=== PATIENT | male | born 1995 | race Caucasian/White ===

== ENCOUNTER 2022-11-03 11:06 | Outpatient (OUT) | payer OTHER, SELFPAY ==
[2022-11-03 11:38] LABS: Basophils Absolute Auto 0.1 10^3/uL (0.0-0.1); Basophils Percent Auto 1.3 % (0.2-2.0); Eosinophils Absolute Auto 0.4 10^3/uL (0.0-0.7); Eosinophils Percent Auto 9.3 % (0.9-7.0); Hematocrit 39.2 % (42.0-54.0); Hemoglobin 12.9 g/dL (14.0-18.0); Immature Granulocytes Abs Auto 0.01 10^3/uL (0.00-0.03); Immature Granulocytes Pct Auto 0.3 % (0.0-0.5); Lymphocytes Absolute Auto 1.3 10^3/uL (1.2-3.8); Lymphocytes Percent Auto 31.3 % (20.5-60.0); Mean Corpuscular HGB Conc 32.9 g/dL (29.9-35.2); Mean Corpuscular Hemoglobin 27.3 pg (25.9-34.0); Mean Corpuscular Volume 83.1 fL (80.0-94.0); Mean Platelet Volume 8.7 fL (9.5-13.5); Monocytes Absolute Auto 0.3 10^3/uL (0.3-0.8); Neutrophils Percent Auto 49.8 % (43.0-75.0); Platelet Count 279 10^3/uL (150-450); Red Blood Count 4.72 10^6/uL (4.70-6.10); Red Cell Distribution Width 13.2 % (11.0-15.0)
[2022-11-03 11:42] LABS: Estimated Average Glucose 100 mg/dL; Glycohemoglobin A1C 5.1 % (4.5-6.2)
[2022-11-03 12:08] LABS: Alanine Aminotransferase 25 U/L (16-63); Albumin Globulin Ratio 1.3; Albumin Level 4.3 g/dL (3.4-5.0); Alkaline Phosphatase 95 U/L (46-116); Anion Gap 9.4; Aspartate Amino Transferase 23 U/L (15-37); BUN Creatinine Ratio 16.7; Bilirubin Total 0.2 mg/dL (0.2-1.0); Carbon Dioxide 28.5 mmol/L (21.0-32.0); Chloride 102 mmol/L (98-107); Chol HDL Ratio 3.3; Cholesterol 155 mg/dL (<=200); Estimated GFR (African America >60 (>=60); Estimated GFR (Non-African Ame >60 (>=60); Free T3 3.09 pg/mL (2.18-3.98); Globulin 3.2 g/dL; Glucose 93 mg/dL (74-106); HDL Cholesterol 47 mg/dL (40-60); LDL Cholesterol Calculated 97.8 mg/dL; Potassium 3.9 mmol/L (3.5-5.1); Sodium 136 mmol/L (136-145); Total Protein 7.5 g/dL (6.4-8.2); Triglycerides 51 mg/dL (<=150); VLDL CHOLESTEROL 10.2 mg/dL
== END 2022-11-03 11:07 | disposition home or self-care (01) ==
LOC: LAB 11:09
PROVIDERS: PCP Family Medicine; Visit Provider Family Medicine
DX: Z00.00 Encounter for general adult medical examination without abnormal findings (principal); E78.5 Hyperlipidemia, unspecified
CPT/HCPCS: 36415; 80053; 80061; 83036; 83525; 84436; 84443; 84481; 85025

== ENCOUNTER 2023-01-28 17:21 | Outpatient (REF) | payer OTHER, SELFPAY ==
[2023-01-28 18:41] LABS: SARS-CoV-2 Ag NEGATIVE (NEGATIVE)
[2023-01-28 18:52] LABS: Influenza Virus A Antigen Negative; Influenza Virus B Antigen Negative; Internal Control Within Normal Limits
[2023-01-29 11:23] LABS: SARS-CoV-2 NAA NOT DETECTED (NOT DETECTE)
== END 2023-01-28 17:22 | disposition home or self-care (01) ==
LOC: LAB 17:21
PROVIDERS: PCP Family Medicine; Visit Provider Nurse Practitioner Family
DX: J06.9 Acute upper respiratory infection, unspecified (principal)
CPT/HCPCS: 87635; 87804; 87811

== ENCOUNTER 2023-02-08 10:11 | Outpatient (OUT) | payer OTHER, SELFPAY ==
--- NOTE | 2023-02-08 10:21 | XR_ITS ---
The [place] [id number] Patient Name: WALKER CASTILLO MRN: [id number] date: 1995 Sex: M Assigned Patient Location: [facility] Current Patient Location: Accession/Order Number: [id number] Exam Date: 02/08/2023 11:05 Report Date: 02/09/2023 10:00 At the request of: PAULA SHI Procedure: XR thoracic spine 3V EXAM: XR thoracic spine 3V HISTORY: Lumbago Due To Displacement Of Disc M51.26 COMPARISON: 12/29/2021 TECHNIQUE: Routine views of the XR thoracic spine 3V FINDINGS: Anatomy: 12 rib-bearing thoracic segments. Bones: No acute fracture or dislocation. No suspicious lytic or sclerotic lesion. Mild multilevel thoracic disc and endplate degeneration. Other: Unremarkable. XR/XR thoracic spine 3V IMPRESSION: Mild thoracic spondylosis without acute findings. Electronically authenticated by: ANKITA GUEVARA Date: 02/09/2023 10:00
== END 2023-02-08 10:12 | disposition home or self-care (01) ==
PROVIDERS: PCP Family Medicine; Visit Provider Family Medicine
DX: M51.26 Other intervertebral disc displacement, lumbar region (principal); M47.814 Spondylosis without myelopathy or radiculopathy, thoracic region
CPT/HCPCS: 72072

== ENCOUNTER 2023-02-19 12:28 | Outpatient (OUT) | payer OTHER, SELFPAY ==
--- NOTE | 2023-02-19 12:31 | MR_ITS ---
The [address] [address] Patient Name: WALKER CASTILLO MRN: [facility]:[id number] date: 1995 Sex: M Assigned Patient Location: MRI Current Patient Location: MRI Accession/Order Number: [id number] Exam Date: 02/19/2023 13:00 Report Date: 02/21/2023 12:10 At the request of: PAULA SHI Procedure: MR thoracic spine wo con EXAM: MR thoracic spine wo con HISTORY: Lumbago Due To Displacement Of Disc M51.26. Pain between the shoulder blades radiates distally. No known trauma. COMPARISON: Thoracic spine x-rays 02/08/2023. MRI thoracic spine 12/29/2021. TECHNIQUE: Multiplanar, multisequence MRI of the thoracic spine was performed without contrast. This included sagittal T2, sagittal T1, sagittal STIR with axial T2 and axial T1 imaging. FINDINGS: There are multiple Schmorl's nodes along the thoracic spine with slight anterior wedging deformity at T11, unchanged suggesting Scheuermann's disease. No acute compression fracture is seen. There is minor endplate degenerative edema at T8-9. Axial images are somewhat motion degraded. T8-9: Minimal disc bulge without significant central canal stenosis. Facet disease at T8-9 contributes to mild to moderate bilateral neural foraminal stenosis, unchanged. T9-10: Bilateral facet disease contributes to moderate bilateral neural foraminal stenosis. Study is somewhat motion degraded. As seen, the thoracic spinal cord demonstrates normal size, signal and morphology. No paraspinal mass is seen. MR/MR thoracic spine wo con IMPRESSION: 1. MRI findings suggestive of Scheuermann's disease. No acute osseous variation identified. 2. Mild degenerative disc disease. No significant central canal stenosis. 3. Facet disease along the lower thoracic spine contributes to bilateral neural foraminal stenosis at T8-T9 and T9-10. Electronically authenticated by: GUILLERMO DIALLO Date: 02/21/2023 12:10
--- OUTSIDE RECORDS SUMMARY | 2023-02-19 12:33 | XMS_ITS | CCD ---
Author Name Unknown Address [facility] [address] [place] [id number] Organization [facility] Care Team Providers Care Telephone Technician Name Role Phone MARRERO ., RACHNA Consulting Unavailable HOY ., DR MITCHELL Primary Care Unavailable SAL ., DR DAIN Chavira Attending Unavailable SAL ., DR DAIN Chavira Admitting Unavailable MARRERO ., RACHNA Consulting Unavailable HOY ., DR MITCHELL Primary Care Unavailable SAL ., DR DAIN Chavira Attending Unavailable SAL ., DR DAIN Chavira Admitting Unavailable SAL ., DR DAIN Chavira Consulting Unavailable HOY ., DR MITCHELL Primary Care Unavailable SAL ., DR DAIN Chavira Attending Unavailable SLA ., DR DAIN Chavira Admitting Unavailable MIKAEL CUI Consulting Unavailable TARUN YEBOAH Consulting Unavailable SAL ., DR DAIN Chavira Consulting Unavailable HOY ., DR MITCHELL Primary Care Unavailable SAL ., DR DAIN Chavira Attending Unavailable SAL ., DR DAIN Chavira Admitting Unavailable SAL ., DR DAIN Chavira Consulting Unavailable HOY ., DR MITCHELL Primary Care Unavailable SAL ., DR DAIN Chavira Attending Unavailable SAL ., DR DAIN Chavira Admitting Unavailable MARRERO ., RACHNA Consulting Unavailable HOY ., DR MITCHELL Primary Care Unavailable SAL ., DR DAIN Chavira Attending Unavailable SAL ., DR DAIN Chavira Admitting Unavailable SAL ., DR DAIN Chavira Consulting Unavailable HOY ., DR MITCHELL Primary Care Unavailable SAL ., DR DAIN Chavira Attending Unavailable SAL ., DR DAIN Chavira Admitting Unavailable SAL ., DR DAIN Chavira Consulting Unavailable HOY ., DR MITCHELL Primary Care Unavailable SAL ., DR DAIN Chavira Attending Unavailable SAL ., DR DAIN Chavira Admitting Unavailable GUILLE CARRILLO Consulting Unavailable HOY ., DR MITCHELL Primary Care Unavailable HOY ., DR MITCHELL Attending Unavailable HOY ., DR MITCHELL Admitting Unavailable HOY ., DR MITCHELL Consulting Unavailable HOY ., DR MITCHELL Primary Care Unavailable HOY ., DR MITCHELL Attending Unavailable HOY ., DR MITCHELL Admitting Unavailable [place], DR SULEMA Yip Consulting Unavailable ROHIT, DR TARUN Atkins Consulting Unavailable HOY ., DR MITCHELL Primary Care Unavailable MARRERO ., RACHNA Attending Unavailable MARRERO ., RACHNA Admitting Unavailable MARRERO ., RACHNA Consulting Unavailable HOY ., DR MITCHELL Primary Care Unavailable HOY ., DR MITCHELL Attending Unavailable HOY ., DR MITCHELL Admitting Unavailable HOY ., DR MITCHELL Primary Care Unavailable HOY ., DR MITCHELL Attending Unavailable HOY ., DR MITCHELL Admitting Unavailable HOY ., DR MITCHELL Consulting Unavailable HOY ., DR MITCHELL Primary Care Unavailable HOY ., DR MITCHELL Attending Unavailable HOY ., DR MITCHELL Admitting Unavailable Problems Active Problems Problem Classification Problem Date Documented Date Episodic/Chronic Other nervous system disorders (1 source) Other specified mononeuropathies; Translations: [OTHER SPECIFIED MONONEUROPATHIES] Onset: 09-24-2021 Chronic Other nervous system disorders (1 source) Other chronic pain; Translations: [OTHER CHRONIC PAIN] Onset: 06-26-2021 Chronic Residual codes; unclassified (4 sources) Obstructive sleep apnea (adult) (pediatric); Translations: [OBSTRUCTIVE SLEEP APNEA] Onset: 04-27-2022 Chronic Spondylosis; intervertebral disc disorders; other back problems (5 sources) Spondylosis without myelopathy or radiculopathy, thoracic region; Translations: [Other intervertebral disc degeneration, thoracic region] Onset: 09-18-2021 Chronic Past or Other Problems Problem Classification Problem Date Documented Da te Episodic/Chronic Spondylosis; intervertebral disc disorders; other back problems (10 sources) Pain in thoracic spine; Translations: [Cervicalgia] Onset: 05-21-2021 Episodic Results Test Name Value Interpretation Reference Range Facil ity MRI TSPINE WO CONon 12-30-19 MRI TSPINE WO CON EXAMINATION: MRI TSPINE WO CON HISTORY: Pain in thoracic spine COMPARISON: 03/10/2021 TECHNIQUE: A variety of imaging planes and parameters were utilized for visualization of suspected pathology. FINDINGS: CRANIOCERVICAL AREA: Normal foramen magnum with no Chiari malformation. PARASPINAL AREA: Normal with no visible mass. BONES: Normal alignment with no acute fracture or spondylolisthesis. Mild stable anterior wedging of the T8 T9 T10 and T11 vertebral bodies with no bone edema to suggest an acute fracture. CORD: Normal caliber, contour, and signal intensity. DISC LEVELS: Disc desiccation T6-T7. No disc bulge or herniation. No central or foraminal stenosis IMPRESSION: No acute abnormality Electronically authenticated by: SULEMA REYEZ Date: 2021-12-29 17:48 Normal [facility] XR CSPINE OBL FLEX_EXTon XR CSPINE OBL FLEX_EXT EXAMINATION: XR CSPINE OBL FLEX_EXT HISTORY: Neck pain ; chronic cervical pain COMPARISON: XR cervical spine 03/04/2021 FINDINGS: BONES: Straightening of the normal lordotic curvature. No fracture, spondylolisthesis, or appreciable change in alignment during flexion and extension. No significant degenerative facet arthropathy. DISC SPACES: Mild narrowing C2-3. Small-moderate posterior disc-osteophyte complex at C5-6. PARASPINOUS: Negative. No paraspinous abnormality is seen. OTHER: Negative. IMPRESSION: 1. Straightening of the cervical spine; positioning versus muscle spasm. 2. Mild degenerative disc disease C2-3, C5-6; not significantly changed. Consider MRI if symptoms persist. Electronically authenticated by: TARUN BEE Date: 2021-07-08 08:58 Normal [facility] Encounters Encounter Date Encounter Type Care Provider Facility Start: 04-27-2022 End: 04-28-[address] PAULA BARAHONA . Facility:[facility] Start: 02-26-[address] PAULA BARAHONA . Facili ty:[facility] Start: 01-07-[address] PAULA BARAHONA . Facili ty:[facility] Start: 12-29-2021 End: 12-30-[address] PAULA BARAHONA . Facility:[facility] Start: 12-22-[address] PAULA BARAHONA . Facili ty:[facility] Start: 09-18-2021 End: 09-19-2021 ambulatory RACHNA MARRERO . Facility:[facility] Start: 08-19-2021 End: 08-19-[address] DAIN SAL . Facility:[facility] Start: 08-05-2021 End: 08-05-[address] DAIN SAL . Facility:[facility] Start: 07-08-2021 End: 07-09-[address] TARUN R ZIEBER Facility:[facility] Start: 07-03-2021 End: 07-04-2021 ambulatory RACHNA MARRERO . Facility:[facility] Start: 06-24-2021 End: 06-24-[address] DAIN SAL . Facility:[facility] Start: 06-10-[address] DAIN SAL . Faci lity:[facility] Start: 05-15-2021 End: 05-16-2021 ambulatory RACHNA MARRERO . Facility:[facility] Start: 05-06-2021 End: 05-06-[address] DAIN SAL . Facility:[facility] Payers Date Payer Category Payer Unknown [id number] 2.16.84 [id number] 1995 Unknown [id number] 2.16.84 [id number] 1994 Unknown [id number] 2.16.84 0.1.716160.3.579.2.593 1994 Unknown [id number] 2.16.84 0.1.558850.3.579.2.593 1994 Unknown [id number] 2.16.84 0.1.073291.3.579.2.593 1994 Unknown [id number] 2.16.84 0.1.652414.3.579.2.593 1994 Unknown [id number] 2.16.84 0.1.497573.3.579.2.593 1994 Unknown [id number] 2.16.84 0.1.608626.3.579.2.593 1994 Unknown [id number] 2.16.84 0.1.424936.3.579.2.593 1994 Unknown [id number] 2.16.84 0.1.473130.3.579.2.593 1994 Unknown [id number] 2.16.84 0.1.973859.3.579.2.593 1994 Unknown [id number] 2.16.84 0.1.207301.3.579.2.593 1994 Unknown [id number] 2.16.84 0.1.301730.3.579.2.593 1994 Unknown [id number] 2.16.84 0.1.715180.3.579.2.593 1959 Private Health Insurance [id number] 1959 Self-pay Consultation note 09-18-2021 Note Date & Type Note Facility 09-18-2021 Note CONSULTATION CONSULTATION DATE: 09/18/2021 HISTORY OF PRESENT ILLNESS: This is a 26-year-old male returning to the clinic status post bilateral RFAs of T8, T9 and T10, T11, which was completed on 08/19/2021 and afforded him 75% relief. Patient still complains of slight dull achiness that is mostly in the forward flexion position or when holding his young child. Overall, he is very pleased with the outcome and is participating in stretching, heat rubs and moist heat. He feels a slight achiness just to the level above the RFA, but has been using self massage and Icy Hot on top of that, which has been beneficial. Activities such as pushing, pulling, sitting, standing, walking and bending aggravate his pain. Stretching and the use of heat and ice relieve his pain. Patient does have a history of seizures and he is on Lamictal. Other medications include Xarelto, tramadol 50 mg per his PCP, baclofen and Paxil. Patient's REVIEW OF SYSTEMS / PAST MEDICAL HISTORY / ALLERGIES and IMAGES have been reviewed and they are noted on the chart. PHYSICAL EXAM: VITAL SIGNS: Blood pressure is 136/80. Heart rate is 72. Temperature is 98.2. He is 6'4 and weighs 245 pounds. GENERAL APPEARANCE: Pleasant, appropriate, no acute distress. FOCUSED EXAM - BACK: Paravertebral muscles are supple and non-spasmodic. Range of motion is functional in lateral rotation and flexion/extension. Upon compression of the posterior elements of the thoracic facets of T8, T9 and T11, T10, no spinal axial pain was reproduced, indicative of successful RFA. Slight tenderness to T1, T2 and T3 on the left, upon compression. MUSCULOSKELETAL: Motor is intact to upper and lower extremities. Motor is 5/5. NEUROLOGICAL: Patchy hypoesthesia noted to right sided C8 dermatome, just below the elbow. +1 bilateral brachioradialis reflex. IMPRESSION: Thoracic spondylosis, thoracic degenerative disc and cervical neuritis. PLAN: Overall, the patient is doing quite well. He was encouraged to continue doing his extension exercises and taking his baclofen, as well as continuing his heat rub and vitamins. At this point, the patient will call us for any needed appointment at this time. Patient agrees with the plan of care. [facility] Consultation note 07-03-2021 Note Date & Type Note Facility 07-03-2021 Note CONSULTATION CONSULTATION DATE: 07/03/2021 This is a pleasant 26-year-old male who returns to the clinic status post #2 bilateral MBB to T8, T9 and T10, T11 which was completed on that afforded him 98% relief for approximately one week. The pain is beginning to return but the patient reports it is not as bad as pre-procedure. He rates his pain 5 out of 10 today and describes it as achy and stressed. The patient is able to be very mobile and complete ADLs at home. Activities such as twisting, turning, pushing, pulling, standing, walking, lifting and bending aggravate his pain. He will alternate heat and ice on his back which does give him relief. His PCP Dr. Barahona, has recently given him a short-term dose of Tramadol to help with the pain during his active daytime hours. Other medications include Paxil, Xarelto and Baclofen. The patient is complaining today of lower neck pain that is aggravated by rotational movements. He states he occasionally feels a pop and is acquiring about possible treatment. REVIEW OF SYSTEMS, PAST MEDICAL HISTORY, ALLERGIES AND IMAGES: Have been reviewed and noted in the chart. PHYSICAL EXAM: VITAL SIGNS: Blood pressure 145/90, heart rate is 74, temperature is 97.6. Height is 6'4 , weighs 121.3 mg. GENERAL APPEARANCE: Pleasant, appropriate, in no acute distress, sitting in a chair. FOCUSED EXAM: Reproduction of the patient's pain symptomatology to direct compression along the posterior elements of the thoracic of T8, T9 and T10, T11. Fullness is palpated that radiates laterally which is concordant with ill facet arthropathy, thoracic spondylosis. Paravertebral muscles are non-spasmodic. Range of motion is guarded in lateral rotation and flexion/extension. MUSCULOSKELETAL: Motor is intact, 4 out of 5 bilaterally. The patient has good muscle tone. Stable gait. NEUROLOGICAL: Radicular sensory is intact. Negative polyneuropathy. DIAGNOSIS: Thoracic spondylosis, thoracic degenerative disk and cervicalgia. PLAN: We will gain authorization for radiofrequency ablation starting with the right side of T, 9 and T10, T11 and subsequently moved to the left. We will get authorization to hold his Xarelto pre-procedure. We will obtain an x-ray for cervical flexion and extension views to review pathology and anatomy. The x-ray will be reviewed at his post-op appointment following his procedures. The patient agrees with the plan of care and would like to proceed. [facility] Signed and Approved by: RACHNA MARRERO . 07/10/2021 17:08:00 [facility] Consultation note 05-15-2021 Note Date & Type Note Facility 05-15-2021 Note The [place], [place] NAME: WALKER CASTILLO DATE OF : MEDICAL REC#: [id number] BUGGY OPERATOR: [address] [facility], TRANSADMIT DATE: 05/15/2021 14:42:00 MANAGER CONCRETE DATE: 05/16/2021 22:00 DICTATING PHYSICIAN: RACHNA MARRERO DICTATION DATE: 05/15/2021 15:00 CONSULTATION PAIN MANAGEMENT CONSULTATION HISTORY OF PRESENT ILLNESS: This is a pleasant and active, 26-year-old male, who returns to the clinic status post #1 bilateral MBB of T8, T9 and T10, T11 completed on 04/30/2021 that afforded him 85% relief for one day. Today, he is still reporting 60-65% relief, but is slowly decreasing. His pain today is 6/10, described as achy with an occasional sharp pain. He does feel stiff during the end of the day. While he was feeling his best post procedure, he felt his posture was straighter and he felt taller as he was able to move around with less pain. He felt he did not have the need to sit down as frequently while he was feeling better. Activities that aggravate his pain are prolonged standing, walking, twisting, turning, pushing, pulling, lifting and ADLs. The use of alternating heat and ice along with sleep decrease his pain. Medications include Paxil, tizanidine 8 mg q.h.s. and he uses Icy Hot on his back. He is on Xarelto for a history of left upper arm blood clots. Patient's REVIEW OF SYSTEMS / PAST MEDICAL HISTORY / ALLERGIES and IMAGES have been reviewed and they are noted in the chart. PHYSICAL EXAM: VITALS SIGNS: Blood pressure 152/80, heart rate is 81. Temperature is 98. He is 6'4 and weighs 122 kg. FOCUSED EXAM - THORACIC BACK: Trapezius muscles tense but not spasmodic. Reproduction of patient's pain spinal axial pain noted to posterior elements of the thoracic facets upon compression that is non-radiating. This is concordant with ill facet arthropathy, thoracic spondylosis of T8, T9 and T10, T11. Range of motion is within normal limits for lateral rotation and flexion/extension. MUSCULOSKELETAL: Motor is intact upper and lower extremities 4/5 bilaterally. NEUROLOGICAL: Radicular sensory is intact. Negative polyneuropathy. IMPRESSION: Thoracic spondylosis, thoracic degenerative disc and thoracic pain. PLAN: Patient agrees and would like to move forward with a #2 bilateral MBB to T8, T9 and T10, T11. In the meantime, patient was encouraged to continue using a heat rub as well as perform extension exercises which were demonstrated for him. I encouraged him to start magnesium glycinate 400 mg q.h.s. in addition to his multivitamin. We will gain permission to hold his Xarelto prior to the procedure. Patient agrees with plan of care and would like to proceed. Electronically Authenticated and Edited by: Rachna Marrero CNP on 05/22/2021 10:05 AM EDT [facility] Signed and Approved by: RACHNA MARRERO . 05/22/2021 10:05:00 [facility] Summary Purpose Family History No Family History Records Found Advance Directives No Advanced Directives Records Found Additional Source Comments (unrecognized sect ion and content) No Status Records Found INFORMATION SOURCE (unrecogn ized section and content) DATE CREATED AUTHOR 05/02/2022 The [facility] FOR RECORDS PERTAINING TO PATIENTS WHO ARE OR HAVE BEEN ENROLLED IN A CHEMICAL DEPENDENCY/SUBSTANCEABUSE PROGRAM, SOME INFORMATION MAY BE OMITTED. This clinical summary was aggregated from multiple sources. Caution should be exercised in using it in the provision of clinical care. This summary normalizes information from multiple sources, and as a consequence, information in this document may materially change the coding, format and clinical context of patient data. In addition, data may be omitted in some cases. CLINICAL DECISIONS SHOULD BE BASED ON THE PRIMARY CLINICAL RECORDS. [facility]. provides no warranty or guarantee of the accuracy or completeness of information in this document.
== END 2023-02-19 12:29 | disposition home or self-care (01) ==
LOC: MRI 12:28
PROVIDERS: PCP Family Medicine; Visit Provider Family Medicine
DX: M51.26 Other intervertebral disc displacement, lumbar region (principal); M51.34 Other intervertebral disc degeneration, thoracic region
CPT/HCPCS: 72146

== ENCOUNTER 2023-03-23 16:37 | Outpatient (RCR) | payer OTHER, SELFPAY | END 2023-04-02 10:20 | disposition home or self-care (01) | LOC: PT 16:37 | PROVIDERS: PCP Family Medicine; Visit Provider Family Medicine | DX: M42.00 Juvenile osteochondrosis of spine, site unspecified (principal) | CPT/HCPCS: 97014; 97110; 97161 ==

== ENCOUNTER 2023-10-13 06:51 | Outpatient (OUT) | payer OTHER, SELFPAY ==
--- OUTSIDE RECORDS SUMMARY | 2023-10-13 06:55 | XMS_ITS | CCD ---
Author Organization [facility] Care Team Providers Care Security And Compliance Analyst Name Role Phone MARRERO ., RACHNA Consulting [...] SAL ., DR DAIN Chavira Admitting Unavailable MIKAEL [...] DR MITCHELL Attending Unavailable HOY ., DR PAULA Vivaritting Unavailable HOY ., DR MITCHELL Consulting Unavailable HOY ., DR MITCHELL Primary Care Unavailable HOY ., DR MITCHELL Attending Unavailable HOY ., DR MITCHELL Admitting Unavailable [place], DR SULEMA Yip Consulting Unavailable ROHIT, DR [...] by: SULEMA REYEZ Date: 2021-12-29 17:48 Normal [facility] XR CSPINE OBL FLEX_EXTon XR [...] Date: 2021-07-08 08:58 Normal [facility] Encounters Encounter Date Encounter Type [...] Start: 07-08-2021 End: 07-09-[address] TARUN BEE Facility:[facility] Start: 07-03-2021 End: 07-04-2021 ambulatory RACHNA MARRERO . Facility:[facility] Start: 06-24-2021 End: 06-24-[address] DAIN SAL . Facility:[facility] Start: 06-10-[address] DAIN SAL . Faci lity:[facility]1 Start: 05-15-2021 End: 05-16-2021 ambulatory RACHNA MARRERO . Facility:[facility] Start: 05-06-2021 End: 05-06-[address] DAIN SAL . Facility:[facility]1 Payers Date Payer Category Payer Unknown [id number] 2.16.84 [id number] 1995 Unknown [id number] 2.16.84 0.1.955514.3.579.2.593 1994 Unknown [id number] 2.16.84 0.1.216949.3.579.2.593 1994 Unknown [id number] 2.16.84 0.1.274774.3.579.2.593 1994 Unknown [id number] 2.16.84 0.1.386294.3.579.2.593 1994 Unknown [id number] 2.16.84 0.1.405507.3.579.2.593 1994 Unknown [id number] 2.16.84 0.1.980762.3.579.2.593 1994 Unknown [id number] 2.16.84 0.1.336981.3.579.2.593 1994 Unknown [id number] 2.16.84 0.1.085707.3.579.2.593 1994 Unknown [id number] 2.16.84 0.1.959359.3.579.2.593 1994 Unknown [id number] 2.16.84 0.1.391623.3.579.2.593 1994 Unknown [id number] 2.16.84 0.1.517014.3.579.2.593 1994 Unknown [id number] 2.16.84 0.1.764011.3.579.2.593 1994 Unknown [id number] 2.16.84 0.1.606403.3.579.2.593 1959 Private Health Insurance [id number] Self-pay Consultation note 09-18-2021 Note Date [...] the plan of care. [facility] Consultation note 07-03-2021 Note Date [...] of care and would like to proceed. [facility] Signed and Approved by: RACHNA MARRERO . 07/10/2021 17:08:00 [facility] Consultation note 05-15-2021 Note Date & Type Note Facility 05-15-2021 Note The [place], [place] NAME: WALKER CASTILLO DATE OF : MEDICAL REC#: [id number] COMMUNICATION TECHNICIAN: [address], TRANSADMIT DATE: 05/15/2021 14:42:00 [employer] OPERATOR DATE: 05/16/2021 22:00 DICTATING PHYSICIAN: RACHNA MARRERO [...] Marrero CNP on 05/22/2021 10:05 AM EDT [facility] Signed and Approved by: RACHNA MARRERO . 05/22/2021 10:05:00 [facility] Summary Purpose Family History No Family History Records Found Advance Directives No Advanced Directives Records Found Additional Source Comments (unrecognized sect ion and content) No Status Records Found INFORMATION SOURCE (unrecogn ized section and content) DATE CREATED AUTHOR 05/02/2022 The [facility] FOR RECORDS PERTAINING TO PATIENTS [...] BE BASED ON THE PRIMARY CLINICAL RECORDS. [employer] [facility]. provides no warranty or guarantee of the accuracy or completeness of information in this document.
--- NOTE | 2023-10-13 06:56 | XR_ITS ---
The [address] [address] Patient Name: WALKER CASTILLO MRN: [id number] date: 1995 Sex: M Assigned Patient Location: [facility] Current Patient Location: [facility] Accession/Order Number: [id number] Exam Date: 10/13/2023 07:05 Report Date: 10/13/2023 12:00 At the request of: PAULA SHI Procedure: XR cervical spine 2-3V EXAMINATION: XR cervical spine 2-3V HISTORY: cervical radiculopathy COMPARISON: XR C-spine 07/08/2021 FINDINGS: BONES: Straightening of normal lordotic curvature. No fracture, spondylolisthesis, or bone lesion. DISC SPACES: Minimal narrowing C2-3, C4-5. Small posterior endplate osteophyte at C5 suggesting posterior disc bulging. PARASPINOUS: Negative. No paraspinous abnormality is seen. OTHER: Negative. XR/XR cervical spine 2-3V IMPRESSION: 1. Suspect multilevel mild degenerative disc disease. 2. Straightening of normal lordotic curvature; positioning versus muscle spasm. Electronically authenticated by: TARUN BEE Date: 10/13/2023 12:00
== END 2023-10-13 06:52 | disposition home or self-care (01) ==
LOC: RAD 06:53
PROVIDERS: PCP Family Medicine; Visit Provider Family Medicine
DX: M54.12 Radiculopathy, cervical region (principal); M50.30 Other cervical disc degeneration, unspecified cervical region
CPT/HCPCS: 72040

== ENCOUNTER 2023-11-04 10:50 | Outpatient (OUT) | payer OTHER, SELFPAY ==
--- NOTE | 2023-11-04 10:56 | XR_ITS ---
The [address] [address] Patient Name: WALKER CASTILLO MRN: [id number] date: 1995 Sex: M Assigned Patient Location: [facility] Current Patient Location: Accession/Order Number: [id number] Exam Date: 11/04/2023 11:00 Report Date: 11/05/2023 13:15 At the request of: MARK JARVIS Procedure: XR cervical spine 2-3V EXAMINATION: XR cervical spine 2-3V HISTORY: Neck Pain M54.2 COMPARISON: 10/13/2023 FINDINGS: BONES: Neutral projection demonstrates reversal of normal cervical lordosis. No acute fracture or spondylolisthesis. Mild spondylosis and facet osteoarthropathy DISC SPACES: Normal. No significant disc height narrowing, subluxation, or endplate abnormality. PARASPINOUS: Negative. No paraspinous abnormality is seen. OTHER: No transient spondylolisthesis with flexion or extension XR/XR cervical spine 2-3V IMPRESSION: Reversal of cervical lordosis in neutral projection with no dynamic instability Electronically authenticated by: SULEMA REYEZ Date: 11/05/2023 13:15
--- OUTSIDE RECORDS SUMMARY | 2023-11-04 11:07 | XMS_ITS | CCD ---
Author Organization [facility] CliniSymn Care Team Providers Care Records Management Analyst Name Role Phone MARRERO ., RACHNA [...] Unavailable HOY ., DR MITCHELL Admitting Unavailable SPENCER, DR SULEMA Yip Consulting Unavailable ROHIT, DR [...] by: SULEMA REYEZ Date: 2021-12-29 17:48 Normal [facility] XR CSPINE OBL FLEX_EXTon XR CSPINE OBL [...] TARUN BEE Date: 2021-07-08 08:58 Normal [facility] Encounters Encounter Date Encounter Type Care Provider [...] Facility:H1 Payers Date Payer Category Payer Unknown [id number] 2.16.84 0.1.339860.3.579.2.593 1995 Unknown [id number] 2.16.84 0.1.298113.3.579.2.593 1994 Unknown [id number] 2.16.84 0.1.688351.3.579.2.593 1994 Unknown [id number] 2.16.84 0.1.884004.3.579.2.593 1994 Unknown [id number] 2.16.84 0.1.893859.3.579.2.593 1994 Unknown [id number] 2.16.84 0.1.492395.3.579.2.593 1994 Unknown [id number] 2.16.84 0.1.709927.3.579.2.593 1994 Unknown [id number] 2.16.84 0.1.020288.3.579.2.593 1994 Unknown [id number] 2.16.84 0.1.542386.3.579.2.593 1994 Unknown [id number] 2.16.84 0.1.685757.3.579.2.593 1994 Unknown [id number] 2.16.84 0.1.393720.3.579.2.593 1994 Unknown [id number] 2.16.84 0.1.939162.3.579.2.593 1994 Unknown [id number] 2.16.84 0.1.611260.3.579.2.593 1994 Unknown [id number] 2.16.84 0.1.044180.3.579.2.593 1959 Private Health Insurance [id number] Self-pay Consultation note 09-18-2021 Note Date [...] agrees with the plan of care. [facility] Consultation note 07-03-2021 Note Date & Type [...] of care and would like to proceed. [facility] Signed and Approved by: RACHNA MARRERO . 07/10/2021 17:08:00 [facility] Consultation note 05-15-2021 Note Date & Type Note Facility 05-15-2021 Note The [place], [place] NAME: WALKER CASTILLO DATE OF : MEDICAL REC#: [id number] ENGINE BUILDUP MECHANIC: [address], TRANSADMIT DATE: 05/15/2021 14:42:00 DIGITAL RETOUCHER DATE: 05/16/2021 22:00 DICTATING PHYSICIAN: RACHNA MARRERO [...] Marrero CNP on 05/22/2021 10:05 AM EDT [facility] Signed and Approved by: RACHNA MARRERO . 05/22/2021 10:05:00 [facility] Summary Purpose Family History No Family History Records Found Advance Directives No Advanced Directives Records Found Additional Source Comments (unrecognized sect ion and content) No Status Records Found INFORMATION SOURCE (unrecogn ized section and content) DATE CREATED AUTHOR 05/02/2022 The [facility] FOR RECORDS PERTAINING TO PATIENTS WHO [...] BE BASED ON THE PRIMARY CLINICAL RECORDS. [employer] [facility]. provides no warranty or guarantee of the accuracy or completeness of information in this document.
== END 2023-11-04 10:51 | disposition home or self-care (01) ==
LOC: RAD 10:51
PROVIDERS: PCP Family Medicine; Visit Provider Orthopaedic Surgery Orthopaedic Surgery of the Spine
DX: M54.2 Cervicalgia (principal)
CPT/HCPCS: 72040

== ENCOUNTER 2023-11-25 15:25 | Outpatient (OUT) | payer OTHER, SELFPAY ==
--- NOTE | 2023-11-25 15:28 | MR_ITS ---
The [place] [id number] Patient Name: WALKER CASTILLO MRN: [facility]:[id number] date: 1995 Sex: M Assigned Patient Location: MRI Current Patient Location: MRI Accession/Order Number: [id number] Exam Date: 11/25/2023 15:45 Report Date: 11/25/2023 18:24 At the request of: MARK JARVIS Procedure: MR cervical spine wo con MR cervical spine wo con, 11/25/2023 3:45 PM EDT INDICATION: Cervical Radiculopathy, Degenerative Disc Disease COMPARISON: Prior x-ray of cervical spine dated 11/04/2023 and 07/08/2021 TECHNIQUE: Multiplanar, multisequential MRI images of cervical spine were obtained without contrast. FINDINGS: The sensitivity of the study has been decreased due to motion artifact. There is normal physiologic cervical lordosis. The vertebral heights are relatively preserved. The cervicomedullary junction is unremarkable. No definite signal abnormality within the spinal cord is noted. There are mild disc osteophyte complex associated with uncovertebral joint arthrosis from C3 to T1 contributing to neuroforaminal and canal stenosis. At the level of C2-C3, there is no neuroforaminal narrowing or canal stenosis. At the level of C3-C4, there is moderate bilateral neuroforaminal narrowing and no canal stenosis. At the level of C4-C5, there is mild bilateral neuroforaminal narrowing and mild canal stenosis. At the level of C5-C6, there is no neuroforaminal narrowing and no canal stenosis. At the level of C6-C7, there is mild right neuroforaminal narrowing and no canal stenosis. Level of C7-T1 is unremarkable. No definite muscular or ligamentous injury is noted. MR/MR cervical spine wo con IMPRESSION: Limited study due to significant motion artifact. Within this confinement, moderate degenerative changes of the cervical spine in particular at C3-C4 and C4-C5. Electronically authenticated by: SOPHIA VERDUZCO Date: 11/25/2023 18:24
--- OUTSIDE RECORDS SUMMARY | 2023-11-25 15:28 | XMS_ITS | CCD ---
Author Organization [facility] CliniSypr Care Team Providers Care Tank Builder Name Role Phone MARRERO ., RACHNA Consulting [...] Unavailable HOY ., DR MITCHELL Admitting Unavailable [place]ES[place], DR SULEMA Yip Consulting Unavailable ROHIT, DR [...] by: SULEMA REYEZ Date: 2021-12-29 17:48 Normal [facility] XR CSPINE OBL FLEX_EXTon XR CSPINE [...] TARUN BEE Date: 2021-07-08 08:58 Normal [facility] Encounters Encounter Date Encounter Type Care [...] Facility:H1 Payers Date Payer Category Payer Unknown [id number] 2.16.84 0.1.481160.3.579.2.593 1995 Unknown [id number] 2.16.84 0.1.013076.3.579.2.593 1994 Unknown [id number] 2.16.84 0.1.336438.3.579.2.593 1994 Unknown [id number] 2.16.84 0.1.392864.3.579.2.593 1994 Unknown [id number] 2.16.84 0.1.090496.3.579.2.593 1994 Unknown [id number] 2.16.84 0.1.556164.3.579.2.593 1994 Unknown [id number] 2.16.84 0.1.479615.3.579.2.593 1994 Unknown [id number] 2.16.84 0.1.876838.3.579.2.593 1994 Unknown [id number] 2.16.84 0.1.173017.3.579.2.593 1994 Unknown [id number] 2.16.84 0.1.444960.3.579.2.593 1994 Unknown [id number] 2.16.84 0.1.250667.3.579.2.593 1994 Unknown [id number] 2.16.84 0.1.858180.3.579.2.593 1994 Unknown [id number] 2.16.84 0.1.571669.3.579.2.593 1994 Unknown [id number] 2.16.84 0.1.391915.3.579.2.593 1959 Private Health Insurance [id number] Self-pay Consultation note 09-18-2021 Note Date [...] agrees with the plan of care. [facility] Consultation note 07-03-2021 Note Date & [...] of care and would like to proceed. [facility] Signed and Approved by: RACHNA MARRERO . 07/10/2021 17:08:00 [facility] Consultation note 05-15-2021 Note Date & Type Note Facility 05-15-2021 Note The [place], [place] NAME: WALKER CASTILLO DATE OF : MEDICAL REC#: [id number] SIDE PANEL PADDER: [address], TRANSADMIT DATE: 05/15/2021 14:42:00 AIR TECHNICIAN DATE: 05/16/2021 22:00 DICTATING PHYSICIAN: RACHNA MARRERO [...] Marrero CNP on 05/22/2021 10:05 AM EDT [facility] Signed and Approved by: RACHNA MARRERO . 05/22/2021 10:05:00 [facility] Summary Purpose Family History No Family History Records Found Advance Directives No Advanced Directives Records Found Additional Source Comments (unrecognized sect ion and content) No Status Records Found INFORMATION SOURCE (unrecogn ized section and content) DATE CREATED AUTHOR 05/02/2022 The [facility] FOR RECORDS PERTAINING TO PATIENTS WHO [...] BE BASED ON THE PRIMARY CLINICAL RECORDS. [facility]. provides no warranty or guarantee of the accuracy or completeness of information in this document.
== END 2023-11-25 15:26 | disposition home or self-care (01) ==
LOC: MRI 15:25
PROVIDERS: PCP Family Medicine; Visit Provider Orthopaedic Surgery Orthopaedic Surgery of the Spine
DX: M50.30 Other cervical disc degeneration, unspecified cervical region (principal); M54.12 Radiculopathy, cervical region
CPT/HCPCS: 72141

== ENCOUNTER 2024-09-18 15:16 | Outpatient (OUT) | payer OTHER, SELFPAY ==
--- OUTSIDE RECORDS SUMMARY | 2023-12-24 07:30 | XMS_ITS ---
Author Organization [facility] Address [address] [place] [address] Care Team Providers Care Magazine Journalist Name Role Phone Arden Barahona Primary Care Provider Rupali Wang [phone] REASON FOR VISIT cervical mri review Medications Medication SIG (Take, Route, Frequency, Duration) Notes Start Date End Date Status Xarelto Active methocarbamol Active LaMICtal Active Encounters Encounter Location Date Provider Diagnosis [facility] Office [address] [place] [address] [place] [address] 12/24/2023 Rupali Romero Plan Of Treatment No Information Progress Notes * RHINA CASTILLOIN JazielDOB: 5 (29 yo M)Acc No.[id number]:12/24/2023 Patient: WALKER VELOZ Provider: Fan Bella MD, PhD :1995 A ge:28 Y S ex:Male Date:12/24/2023 Address:[address] [place], [place] [address] Pcp:Arden Barahona Subjective: * Chief Complaints: * 1 . Cervical mri review. * Medical History: * Medications: T aking methocarbamol , Taking LaMICtal , Taking Xarelto Objective: * Vitals: Assessment: Plan: * Treatment: Forms: * Images: * Electronic signature of Grayson Romero MD, PHD on 09/18/2024 at 03:20 PM EDT Sign off status: Pending * Provider: Fan Bella MD, PhD Date: 02/22/2023 Generated for Costa morrow/Domonique/Rogers on: 0 09/18/2024 03:20 PM EDT
--- OUTSIDE RECORDS SUMMARY | 2024-01-07 07:30 | XMS_ITS ---
Author Organization [facility] Address [address] [place] [address] Care Team Providers Care Sailboat Captain Name Role Phone Arden Barahona Primary Care Provider Rupali Wang [phone] REASON FOR VISIT cervical mri review Medications Medication SIG (Take, Route, Frequency, Duration) Notes Start Date End Date Status methocarbamol Active LaMICtal Active Xarelto Active Encounters Encounter Location Date Provider Diagnosis [facility] Office [address] [place] [address] [place] [address] 01/07/2024 Rupali Romero Plan Of Treatment No Information Progress Notes * RHINA CASTILLOIN JazielDOB: 5 (29 yo M)Acc No.[id number]:01/07/2024 Patient: WALKER VELOZ Provider: Fan Bella MD, PhD :1995 A ge:28 Y S ex:Male Date:01/07/2024 Address:[address] [place], [place] [address] Pcp:Arden Barahona Subjective: * Chief Complaints: * 1 . Cervical mri review. * Medical History: * Medications: T aking methocarbamol , Taking LaMICtal , Taking Xarelto Objective: * Vitals: Assessment: Plan: * Treatment: Forms: * Images: * Electronic signature of Grayson Romero MD, PHD on 09/18/2024 at 03:20 PM EDT Sign off status: Pending * Provider: Fan Bella MD, PhD Date: 1 03/08/2023 Generated for Costa morrow/Domonique/Rogers on: 0 09/18/2024 03:20 PM EDT
--- OUTSIDE RECORDS SUMMARY | 2024-06-07 10:43 | XMS_ITS ---
Author Organization [facility] [place] Address [address] [place] [address] Care Team Providers Care Laborer Dairy Farm Name Role Phone Kp Barahona Primary Care Provider REASON FOR VISIT refill Medications Medication SIG (Take, Route, Fr equency, Duration) Notes Start Date End Date Status ARIPiprazole 2 MG 2 tablet Orally Once a day for 30 days Active Encounters Encounter Location Date Provider Diagnosis [facility] [address] [place] [address] 06/07/2024 Kp Barahona Chest pain R07.9 Assessments Encounter Date Diagnosis (ICD Code) Assessment Notes Treatment Notes Treatment Clinical Notes Section Notes 06/07/2024 Chest pain (ICD-10 - R07.9) Plan Of Treatment Medication Medication Name Sig Start Date Stop Date Notes ARIPiprazole 2 MG 2 tablet Orally Once a day for 30 days Progress Notes * ANNA Jose SheriffDOB: 5 (29 yo M)Acc No.[id number]:06/07/2024 Patient: Jose VELOZ :1995 A ge:29 Y S ex:Male Address:[address] [place] [address], [address] * Refills Refill ARIPiprazole Tablet, 2 MG, Orally, 60 Tablet, 2 tablet, Once a day, 30 days, Refills=11 * true * Date: Generated for Leeanni cristhian/Fasukumarg/eTransmitting on: 0 09/18/2024 03:20 PM EDT
--- OUTSIDE RECORDS SUMMARY | 2024-08-31 12:00 | XMS_ITS ---
Author Organization [facility] in [place] Address [address] [place] [address] Care Team Providers Care Pump Tender Name Role Phone Kp Barahona Primary Care Provider Allergies No Known Allergies REASON FOR VISIT back pain something popped causing pain in chest, bottom of shoulder blade to neck pain, going on for a long time, seeing surgions, have seen pain management they did not help did PT nothing helps Medications Medication SIG (Take, Route, Fr equency, Duration) Notes Start Date End Date Status lamoTRIgine 150 MG TAKE TWO TABLETS BY MOUTH DAILY for 30 Active CeleBREX 200 MG 1 capsule with food Orally Once a day for 30 days 04/20/2024 Active Lyrica 100 MG 1 capsule Orally QHS for 7 days 08/22 Active ARIPiprazole 2 MG 2 tablet Orally Once a day for 30 days Active Xarelto 20 MG TAKE ONE TABLET BY M OUTH DAILY for 30 Active traMADol HCl 50 MG 1 tablet as needed O rally tid for 7 days 08/31/2024 Active tiZANidine HCl 4 MG 2 tabs Orally qhs for 30 days 04/28/2024 Active Social History Tobacco Use: Social History Observation Description Date Details (start date - stop date) Former Smoker 02/22/2017 - 02/22/2019 Tobacco Use/Smoking Question Answer Notes Patient is a former smoker When did you start smoking? 02/22/2017 When did you stop smoking? 02/22/2019 How long has it been since you last smoked? 1-5 years Vital Signs Weight 308.2 lbs 08/31/2024 Height 76.5 in 08/31/2024 Blood pressure systolic 158 mm Hg 09/01/19 25 Blood pressure diastolic 92 mm Hg 025 BMI 37.02 kg/m2 08/31/2024 Encounters Encounter Location Date Provider [facility] [address] [place] [address] 08/31/2024 Kp Barahona Lumbago due to displacement of intervertebral disc M51.26 Assessments Encounter Date Diagnosis (ICD Code) Assessment Notes Treatment Notes Treatment Clinical Notes Section Notes 08/31/2024 Lumbago due to displacement of intervertebral disc (ICD-10 - M51.26) 08/31/2024 Other Recommended to rest and use a heating pad on the area. Take NSAIDs for pain as needed Plan Of Treatment Medication Medication Name Sig Start Date Stop Date Notes Lyrica 100 MG 1 capsule Orally QHS for 7 days 08/31/2024 traMADol HCl 50 MG 1 tablet as needed O rally tid for 7 days 08/31/2024 Treatment Notes Assessment Notes Other Recommended to rest and use a heating pad on the area. Take NSAIDs for pain as needed Medications Administered Medication Instructions Date of Administration Dosage Notes Ketorolac Tromethamine 08/31/2024 60 mg Orphenadrine Citrate 08/31/2024 60 mg Triamcinolone 40 mg/ml 08/31/2024 120 mg Progress Notes * ANNA Jose XDOB: [birth year] (29 yo M)Acc No.[id number]:08/31/2024 Progress Note Patient: Jose VELOZ Provider: Jo Barahona ([facility])MD :1995 A ge:29 Y S ex:Male Date:08/31/2024 Address:[address] [place], [place] [id number] Check In:03:45 PM ESTCheck O ut:04:48 PM EST Subjective: * Chief Complaints: * B ack pain something popped causing pain in chestBottom of shoulder blade to neck painGoing on for a long timeSeeing surgionshave seen pain management they did not help did PT nothing helps * HPI: G eneral: Sa surgery last week Seen surgeon - recommending [facility] looseleaf binder coverer checking on labs. B ack Pain: The patient complains of -. The symptoms have been present for 1-2 days. The patient believes symptoms are injury related No. The symptoms are mild. Symptomatic treatment has included heating pad, stretching. Associated symptoms include None. * ROS: G eneral/Constitutional: Lightheadedness d enies. C hange in appetite d enies. W eight Change d enies. C ardiovascular: Irregular heartbeat d enies. S welling in hands/feet?denies. R espiratory: Shortness of breath d enies. S hortness of breath with exertion d enies. W heezing d enies. M usculoskeletal: Comments S [facility] for details. N eurologic: Dizziness d enies. F ainting d enies. H eadache?denies. 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 M other: alive 53 yrs, diagnosed with Unspecified essential hypertension.?Brother(s): alive. S ister(s): alive. M aternal Grandfather: , Brain Cancer. Maternal Grandmother: alive, diagnosed with Unspecified essential hypertension. 2 brother(s) , 2 sister(s) - healthy. . * Social History: T obacco Use: T obacco Use/Smoking P atient is a f ormer smoker W hen did you start smoking? 0 02/22/2017 W hen did you stop smoking? 0 02/22/2019 H ow long has it been since you last smoked??1-5 years * Medications: T akingARIPiprazole 2 MG Tablet 2 tablet Orally Once a day CeleBREX(Celecoxib) 200 MG Capsule 1 capsule with food Orally Once a day lamoTRIgine 150 MG Tablet TAKE TWO TABLETS BY MOUTH DAILY tiZANidine HCl 4 MG Tablet 2 tabs Orally qhs Xarelto(Rivaroxaban) 20 MG Tablet TAKE ONE TABLET BY MOUTH DAILY Medication List reviewed and reconciled with the patientTaking ARIPiprazole 2 MG Tablet 2 tablet Orally Once a day Taking CeleBREX(Celecoxib) 200 MG Capsule 1 capsule with food Orally Once a day Taking lamoTRIgine 150 MG Tablet TAKE TWO TABLETS BY MOUTH DAILY Taking tiZANidine HCl 4 MG Tablet 2 tabs Orally qhs Taking Xarelto(Rivaroxaban) 20 MG Tablet TAKE ONE TABLET BY MOUTH DAILY Medication List reviewed and reconciled with the patient * Allergies: N .K.D.A.no[Allergies Verified] Objective: * Vitals: W t:308.2lbs, Ht: 76.5 in, BP:158/92mm Hg, BMI:37.02Index, Ht-cm: 194.31 cm, Wt- k.8 kg. * Examination: G eneral Examination: GENERAL APPEARANCE: i n no acute distress, well developed, well nourished. LUNGS: clear to auscultation bilaterally. CARDIO: S1, S2 normal, no murmurs, rubs, gallops. MUSCULOSKELETAL: ____. EXTREMITIES: no clubbing, cyanosis, or edema. NEUROLOGIC: alert, oriented to time, place, & person.? Assessment: * Assessment: 1. L umbago due to displacement of intervertebral disc - M51.26 (Primary) Plan: * Treatment: 2. O thers Notes: Recommended to rest and use a heating pad on the area. Take NSAIDs for pain as needed ? * Therapeutic Injections: Triamcinolone 40 mg/ml : 120 mg (Route: Intramuscular) given by MESERET Berg on right deltoid (Lumbago due to displacement of intervertebral disc) Orphenadrine Citrate : 60 mg (Route: Intramuscular) given by Jennifer Blake , MESERET on right deltoid (Lumbago due to displacement of intervertebral disc) Ketorolac Tromethamine : 60 mg (Route: Intramuscular) given by Jennifer Blake , MESERET on left deltoid (Lumbago due to displacement of intervertebral disc) * Procedure Codes: 9 6372 THERAP.INJ. OF MED. INTRAMUSCULAR OR [id number] TMC ACET,PER 10MG., Units: 12.00 J1885 TORADOL, PER 15 MG, Units: 4.00 , Modifiers: JZ J2360 NORFLEX,UP TO 60MG. * Preventive Medicine: Screenings/Counseling: B CA ACTION PLAN Above Normal BMI Follow-up D ietary management education, guidance, and counseling * * Sign off status: Completed Visit Status: C HK (Check Out) true * Provider: Jo Barahona ([facility])MD Date: 08/31/2024 Generated for Costa morrow/Domonique/Juliannitting on: 09/18/2024 03:19 PM EDT History and Physical Notes * HPI (History of Present Illness) Category Sub-Category Detail Notes Category Not es General surgery last week Seen surgeon - recommending [facility] looseleaf binder coverer checking on labs Examination Category Sub-Category Detail Notes Category Not es General Examination GENERAL APPEARANCE: in no ac tunica-biloxi distress, well developed, well nourished CARDIO: S1, S2 normal, no mu rmurs, rubs, gallops LUNGS: clear to auscultatio n bilaterally NEUROLOGIC: alert, oriented to t doyle, place, & person EXTREMITIES: no clubbing, cyanosi s, or edema MUSCULOSKELETAL: ____
--- OUTSIDE RECORDS SUMMARY | 2024-08-31 12:24 | XMS_ITS ---
Author Organization [facility] in [place] Address [address] [place] [address] Care Team Providers Care Microwave Remote Sensing Scientist Name Role Phone Kp Barahona Primary Care Provider REASON FOR VISIT labs from [facility] Encounters Encounter Location Date Provider Diagnosis [facility] [address] [place] [address] 08/31/2024 Kp Barahona Fatigue R53.83 Assessments Encounter Date Diagnosis (ICD Code) Assessment Notes Treatment Notes Treatment Clinical Notes Section Notes 08/31/2024 Fatigue (ICD-10 - R53.83) Plan Of Treatment Pending Test Test Name Order Date CMP - Comprehensive Metabolic Panel 08/22 CBC W/AUTO DIFF 08/31/2024 AMMONIA 08/31/2024 AMYLASE 08/31/2024 CRP 08/31/2024 LIPASE 08/31/2024 SED RATE WESTERGREN 08/31/2024 Progress Notes * DARINEL Jose SheriffDOB: [birth year] (29 yo M)Acc No.[id number]:08/31/2024 Patient: Jose VELOZ :1995 A ge:29 Y S ex:Male Address:[address] [place] [address], [id number] Subjective: * Chief Complaints: * l abs from [facility] * Medical History: * Surgical History: * Hospitalization/Major Diagno stic Procedure: * Medications: Objective: * Vitals: * Physical Examination: Assessment: * Assessment: 1. F atigue - R53.83 (Primary) Plan: * Treatment: * Procedure Codes: * true * Date: Generated for Costa morrow/Domonique/Rogers on: 09/18/2024 03:20 PM EDT
--- OUTSIDE RECORDS SUMMARY | 2024-09-18 15:20 | XMS_ITS | Clinical Summary ---
Author Organization [facility] tem Address [id number] [address] [place] [address] Care Team Providers Care Progressive Care Nurse Name Role Phone Arden Barahona MD Primary Care Provider [phone] Allergies No known active allergies Medications No known medications Social History Tobacco Use Types Packs/Day Years Used Date Smoking Tobacco: Never Assessed Childcare Answer Date Recorded Childcare Unknown 11/27/2019 Employment Answer Date Recorded Employment Unknown 11/27/2019 Purpose - Life Answer Date Recorded Purpose and direction in life Unknown Sex and Gender Information Value Date Recorded Sex Assigned at Not on file Legal Sex Male 11:49 AM EDT Gender Identity Not on file Sexual Orientation Not on file Last Filed Vital Signs Vital Sign Reading Time Taken Comments Blood Pressure 148/84 11/27/2019 10:41 PM EDT Pulse 118 11/27/2019 10:41 PM EDT Temperature 36.8 C (98.3 F) 11/27/2019 10:41 PM EDT Respiratory Rate 20 11/27/2019 10:41 PM EDT Oxygen Saturation 99% 11/27/2019 10:41 PM EDT Inhaled Oxygen Concentration - - Weight 99.8 kg (220 lb) 11/27/2019 10:41 PM EDT Height 190.5 cm (6' 3 ) 11/27/2019 10:41 PM EDT Body Mass Index 27.5 11/27/2019 10:41 PM EDT Plan of Treatment Health Maintenance Due Date Last Done Comments DTaP,Tdap and Td Vaccines (6 - Tdap) 2005 09/01/1999, 06/24/1995, 1994, Additional history exists Depression Screening 2006 Tobacco Screening 2006 Adult BMI Screening 2012 COVID-19 Vaccine (2023-2 5 season) 2023 11/13/2020, 10/23/2020 Influenza Vaccine 10/23/2024 Medical Devices Not on file Insurance Care Teams Progressive Care Nurse Relationship Specialty Start Date End Date Arden Barahona MD PCP - General Family Medicine 03/18/21
--- OUTSIDE RECORDS SUMMARY | 2024-09-18 15:20 | XMS_ITS | Clinical Summary ---
Author Organization [facility] Address [address], [address] [place] [address] Care Team Providers Care [employer] Chief Name Role Phone Arden Barahona MD Primary Care Provider [phone] Allergies No known active allergies Medications ARIPiprazole (ABILIFY) 10 MG tablet 1 tablet daily Active celecoxib (CELEBREX) 100 MG capsule 1 capsule Active lamoTRIgine (LAMICTAL) 150 MG tablet 1 tablet 2 tablets once daily 05/13/2024 Active rivaroxaban (XARELTO) 20 MG TABS tablet 1 tablet Active pregabalin (LYRICA) 100 MG capsule Take 1 capsule by mouth daily. 08/31/2024 Active traMADol (ULTRAM) 50 MG tablet Take 1 tablet by mouth. 08/31/2024 Active Active Problems Problem Noted Date Diagnosed Date Morning joint stiffness 07/27/2024 Kyphosis 07/27/2024 Inflammatory spondylopathy of thoracic region Encounters Date Type Department Care Team Description 07/28/2024 Telephone [facility] [address] [place], [place] [address] [place] [address] Yasmani Sierra MD Referral - General 07/27/2024 3:00 PM EDT Office Visit [address], [address] [place] [id number] Twila Mattson DO Other kyphosis of thoracic region (Primary Dx); Morning joint stiffness; Inflammatory spondylopathy of thoracic region 07/27/2024 12:27 PM EDT - 07/29/2024 11:59 PM EDT Hospital Encounter [facility] [address] [place] [address] Thoracic radiculopathy; Cervical spondylosis with radiculopathy Discharge Disposition: Home or Self Care 07/21/2024 Telephone [facility] [address], [address] [place] [address] Twila Mattson DO Testing Reminder 07/08/2024 8:37 AM EDT - 07/10/2024 11:59 PM EDT Hospital Encounter [facility] [address] [place] [address] Thoracic radiculopathy; Cervical spondylosis with radiculopathy Discharge Disposition: Home or Self Care from Last 3 Months Immunizations Immunization Administration Dates Next Due DTP 1994,1994,1994 DTaP vaccine 09/01/1999,06/24/1995 Hep B, ENGERIX-B, RECOMBIVAX -HB, (age - 19y), IM, 0.5mL 1994,1994,1994 Hib vaccine 1994,1994,1994 MMR, PRIORIX, M-M-R II, (age 12m+), SC, 0.5mL 09/01/1999,06/24/1995 Polio OPV 1994,1994,1994 Poliovirus, IPOL, (age 6w+), SC/IM, 0.5mL 1999 Social History Tobacco Use Types Packs/Day Years Used Date Smoking Tobacco: Former Cigarettes - 2017 Smokeless Tobacco: Never Tobacco Cessation:Counseling Given: Yes Alcohol Use Standard Drinks/Week Comments Not Currently 0 (1 standard drink = 0.6 oz pur e alcohol) Sex and Gender Information Value Date Recorded Sex Assigned at Male 05/31/2024 7:21 AM EDT Legal Sex Male 10:04 AM EDT Gender Identity Male 05/31/2024 7:21 AM EDT Sexual Orientation Straight 05/31/2024 7: 21 AM EDT Last Filed Vital Signs Vital Sign Reading Time Taken Comments Blood Pressure 136/86 07/27/2024 2:52 PM EDT Pulse 91 07/27/2024 2:52 PM EDT Temperature - - Respiratory Rate 14 05/31/2024 8:24 AM EDT Oxygen Saturation - - Inhaled Oxygen Concentration - - Weight 139.2 kg (306 lb 12.8 oz) 07/27/2024 2:52 PM EDT Height 193 cm (6' 4 ) 07/27/2024 2:52 PM EDT Body Mass Index 37.34 07/27/2024 2:52 PM EDT Plan of Treatment Upcoming Encounters Date Type Department Care Team (Latest Contact Info) Description 10/03/2024 3:00 PM EDT Telemedicine [facility] [address] [place] [address] [address], [address] [place] [address] Twila Mattson DO [address] [facility] [address] [place] [address] 3 month follow up 10/18/2024 8:45 AM EDT Office Visit [facility] [place], [place] [id number] Yasmani Sierra MD [address] [place], [place] [id number] Est Care, Other kyphosis of thoracic region, Morning joint stiffness, inflammatory spondylopathy of thoracic region Health Maintenance Due Date Last Done Comments DTaP/Tdap/Td vaccine (6 - Tdap) 2005 09/01/1999, 06/24/1995, 1994, Additional history exists Depression Screen 2006 Varicella vaccine (1 of 2 - 13+ 2-dose series) 2007 HIV screen 2009 Hepatitis C screen 2012 COVID-19 Vaccine ( season) 2023 11/13/2020, 10/23/2020 Flu vaccine (#1) 09/22/2024 Hepatitis B vaccine Completed 1994, 1994, 1994 Hib vaccine Aged Out 1994, 06/22, 1994 No longer eligible based on patient's age to complete this topic Polio vaccine Completed 09/01/1999, 02/1994, 1994, Additional history exists HPV vaccine Aged Out No longer eligi ble based on patient's age to complete this topic Hepatitis A vaccine Aged Out No longe r eligible based on patient's age to complete this topic Meningococcal (ACWY) vaccine Aged Out No longer eligible based on patient's age to complete this topic Meningococcal B vaccine Aged Out No l onger eligible based on patient's age to complete this topic Pneumococcal 0-49 years Vaccine Aged Out No longer eligible based on patient's age to complete this topic Procedures Procedure Name Priority Date/Time Associated Diagnosis Comments XR CERVICAL SPINE (4-5 VIEWS) Routine 07/27/2024 1:08 PM EDT Thoracic radiculopathy Cervical spondylosis with radiculopathy XR SPINE ENTIRE (2-3 VIEWS) Routine 07/27/2024 1:08 PM EDT Thoracic radiculopathy Cervical spondylosis with radiculopathy MRI THORACIC SPINE WO CONTRAST Routine 07/08/2024 9:11 AM EDT Thoracic radiculopathy Cervical spondylosis with radiculopathy from Last 3 Months Results * XR SPINE ENTIRE (2-3 VIEWS) (07/27/2024 1:08 PM EDT) Anatomical Region Laterality Modality Digital Radiogra phy 07/29/2024 12:1 4 PM EDT Impressions 07/29/2024 1:08 PM EDT Mild dextroscoliosis. Narrative 07/29/2024 1:08 PM EDT EXAMINATION: TWO X-RAY VIEWS SCOLIOSIS SERIES 07/27/2024 1:08 pm COMPARISON: None HISTORY: ORDERING SYSTEM PROVIDED HISTORY: Thoracic radiculopathy TECHNOLOGIST PROVIDED HISTORY: Mid and upper back pain. FINDINGS: 7 degrees of dextroscoliosis in the thoracolumbar spine with the apex at the thoracolumbar junction. 57 degrees of lumbar lordosis. Near neutral sagittal balance. Procedure Note Elana Wilkes DO - 07/29/2024 EXAMINATION: TWO X-RAY VIEWS SCOLIOSIS SERIES 07/27/2024 1:08 pm COMPARISON: None HISTORY: ORDERING SYSTEM PROVIDED HISTORY: Thoracic radiculopathy TECHNOLOGIST PROVIDED HISTORY: Mid and upper back pain. FINDINGS: 7 degrees of dextroscoliosis in the thoracolumbar spine with the apex atthe thoracolumbar junction. 57 degrees of lumbar lordosis. Near neutral sagittal balance. IMPRESSION: Mild dextroscoliosis. us Jeannie Norman MATERIALS COORDINATOR - EMERGENCY ROOM SPECIALIST IMG DIAGNOS TIC IMAGING ORDERABLES Final Result * XR CERVICAL SPINE (4-5 VIEWS) (07/27/2024 1:08 PM EDT) Anatomical Region Laterality Modality C-spine, T-spine, Neck Digital R adiography 07/29/2024 9:57 PM EDT Impressions 07/29/2024 10:00 PM EDT 1. Mild uncovertebral arthropathy. Narrative 07/29/2024 10:00 PM EDT EXAMINATION: 4 XRAY VIEWS OF THE CERVICAL SPINE 07/27/2024 1:08 pm COMPARISON: 06/08/24. HISTORY: ORDERING SYSTEM PROVIDED HISTORY: Thoracic radiculopathy TECHNOLOGIST PROVIDED HISTORY: assess alignment and for instability FINDINGS: The vertebral bodies are normally aligned. The vertebral bodies are normal in height without evidence of fracture.The intervertebral disc spaces appear normal.There is mild uncovertebral arthropathy. Procedure Note Kamaljit Christianson MD - 07/29/2024 EXAMINATION: 4 XRAY VIEWS OF THE CERVICAL SPINE 07/27/2024 1:08 pm COMPARISON: 06/08/24. HISTORY: ORDERING SYSTEM PROVIDED HISTORY: Thoracic radiculopathy TECHNOLOGIST PROVIDED HISTORY: assess alignment and for instability FINDINGS: The vertebral bodies are normally aligned. The vertebral bodies are normal in height without evidence offracture.The intervertebral disc spaces appear normal.There is mild uncovertebral arthropathy. IMPRESSION: 1. Mild uncovertebral arthropathy. Jeannie Mcfadden TerijimKristirona MATERIALS COORDINATOR - EMERGENCY ROOM SPECIALIST IMG DIAGNOS TIC IMAGING ORDERABLES Final Result * MRI THORACIC SPINE WO CONTRAST (07/08/2024 9:11 AM EDT) Anatomical Region Laterality Modality C-spine, T-spine, L-spine, Chest Magnetic Resonance 07/10/2024 10:1 2 AM EDT Impressions 07/10/2024 10:22 AM EDT Degenerative disc disease and facet arthropathy. Mild, chronic loss of vertebral body height at T8 through T11 levels. Narrative 07/10/2024 10:22 AM EDT EXAMINATION: MRI OF THE THORACIC SPINE WITHOUT CONTRAST 07/08/2024 8:47 am TECHNIQUE: Multiplanar multisequence MRI of the thoracic spine was performed without the administration of intravenous contrast. COMPARISON: None. HISTORY: ORDERING SYSTEM PROVIDED HISTORY: Thoracic radiculopathy TECHNOLOGIST PROVIDED HISTORY: What is the sedation requirement?->None Reason for Exam: patient states chronic neck and upper back pain radiating into shoulder blades. Symptoms worsening FINDINGS: Mild left convex thoracic scoliosis. Mild loss of vertebral body height at the T8, T9, T10 and T11 levels which is chronic. There is kyphosis centered at this region. Degenerative disc disease with disc desiccation. Endplate degenerative changes are present. C7-T1: Uncovertebral osteophytosis and facet arthropathy. Mild left neural foraminal narrowing. T1-2:Facet arthropathy. Mild left neural foraminal narrowing. T2-3:Osteophytosis and facet arthropathy. [id number]-[id number]-pdkytatb right neural foraminal narrowing. T3-4:Osteophytosis and facet arthropathy. There appears to be moderate right neural foraminal narrowing. T4-5:No significant narrowing. T5-6:No significant narrowing. T6-7:Small central disc herniation with minimal indentation of the anterior aspect of the thecal sac. T7-8:Disc bulge with minimal indentation of the anterior aspect of the thecal sac. Facet arthropathy. Mild bilateral neural foraminal narrowing. T8-9:Disc bulge with minimal indentation of the anterior aspect of the thecal sac. Facet arthropathy. Mild to moderate right neural foraminal narrowing. There may be moderate left neural foraminal narrowing. T9-10:Facet arthropathy. [id number]-[id number] right and mild left neural foraminal narrowing. T10-11:No significant narrowing. T11-12:Disc bulge and facet arthropathy. Mild indentation of the anterior and posterior aspects of the thecal sac. T12-L1:Disc bulge with facet arthropathy. Mild indentation of the anterior and posterior aspects of the thecal sac. Procedure Note Silvio Rosales MD - 07/10/2024 EXAMINATION: MRI OF THE THORACIC SPINE WITHOUT CONTRAST 07/08/2024 8:47 am TECHNIQUE: Multiplanar multisequence MRI of the thoracic spine was performed withoutthe administration of intravenous contrast. COMPARISON: None. HISTORY: ORDERING SYSTEM PROVIDED HISTORY: Thoracic radiculopathy TECHNOLOGIST PROVIDED HISTORY: What is the sedation requirement?->None Reason for Exam: patient states chronic neck and upper back painradiating into shoulder blades. Symptoms worsening FINDINGS: Mild left convex thoracic scoliosis. Mild loss of vertebral body heightat the T8, T9, T10 and T11 levels which is chronic. There is kyphosiscentered at this region. Degenerative disc disease with disc desiccation.Endplate degenerative changes are present. C7-T1: Uncovertebral osteophytosis and facet arthropathy. Mild leftneural foraminal narrowing. T1-2:Facet arthropathy. Mild left neural foraminal narrowing. T2-3:Osteophytosis and facet arthropathy. [id number]-[id number] right neural foraminal narrowing. T3-4:Osteophytosis and facet arthropathy. There appears to be moderateright neural foraminal narrowing. T4-5:No significant narrowing. T5-6:No significant narrowing. T6-7:Small central disc herniation with minimal indentation of theanterior aspect of the thecal sac. T7-8:Disc bulge with minimal indentation of the anterior aspect of thethecal sac. Facet arthropathy. Mild bilateral neural foraminal narrowing. T8-9:Disc bulge with minimal indentation of the anterior aspect of thethecal sac. Facet arthropathy. Mild to moderate right neural foraminalnarrowing. There may be moderate left neural foraminal narrowing. T9-10:Facet arthropathy. Rpti-mn-neizalek right and mild left neural foraminal narrowing. T10-11:No significant narrowing. T11-12:Disc bulge and facet arthropathy. Mild indentation of theanterior and posterior aspects of the thecal sac. T12-L1:Disc bulge with facet arthropathy. Mild indentation of theanterior and posterior aspects of the thecal sac. IMPRESSION: Degenerative disc disease and facet arthropathy. Mild, chronic loss of vertebral body height at T8 through T11 levels. Jeannie Norman MATERIALS COORDINATOR - EMERGENCY ROOM SPECIALIST IMG MRI ORD ERABLES Final Result from Last 3 Months Insurance Care Teams [employer]obile Body Repair Chief Relationship Specialty Start Date End Date Arden Barahona MD [address] [place] [address] PCP - General Family Medicine 05/31/24
--- OUTSIDE RECORDS SUMMARY | 2024-09-18 15:20 | XMS_ITS | Patient Health Record ---
Author Organization [facility] [place] Address [address] [place] [address] Care Team Providers Care Bilingual Counter Sales Retail Name Role Phone Kp Barahona Primary Care Provider Allergies No Known Allergies Results Component Value Reference Range Notes XR cervical spine 2-3V Reviewed date:11/07/2023 12:09:41 PM Interpretation: Performing Lab: Notes/Report: Source Facility: [place] [address] XRay Report Signed Patient: WALKER TENA MR#: [id number] : 1995 Acct:[id number] Age/Sex: 28 / M ADM Date: 11/04/23 Loc: RAD Attending Dr: Mark Bella M.D. Ordering Physician: Mark Bella M.D. Date of Service: 11/04/23 Procedure(s): XR cervical spine 2-3V Accession Number(s): [id number] cc: Arden Barahona M.D.; Mark Bella M.D. [place] [address] Patient Name: WALKER TENA MRN: [id number] date: 1995 Sex: M Assigned Patient Location: RAD Current Patient Location: Accession/Order Number: [id number] Exam Date: 11/04/2023 11:00 Report Date: 11/05/2023 13:15 At the request of: MARK BELLA Procedure: XR cervical spine 2-3V EXAMINATION: XR cervical spine 2-3V HISTORY: Neck Pain M54.2 COMPARISON: 10/13/2023 FINDINGS: BONES: Neutral projection demonstrates reversal of normal cervical lordosis. No acute fracture or spondylolisthesis. Mild spondylosis and facet osteoarthropathy DISC SPACES: Normal. No significant disc height narrowing, subluxation, or endplate abnormality. PARASPINOUS: Negative. No paraspinous abnormality is seen. OTHER: No transient spondylolisthesis with flexion or extension XR/XR cervical spine 2-3V IMPRESSION: Reversal of cervical lordosis in neutral projection with no dynamic instability Electronically authenticated by: SULEMA REYEZ Date: 11/05/2023 13:15 Dictated By: Sulema Reyez M.D. Signed By: 11/05/237 DD/ 14 TD/TT: Central Office Inspector: [place] [address] XRay Report Signed Patient: GWENDOLYN TENA MR#: [id number] : 1995 Acct:[id number] Age/Sex: 28 / M ADM Date: 11/04/23 Loc: RAD Attending Dr: Mark Bella M.D. Ordering Physician: Mark Bella M.D. Date of Service: 11/04/23 Procedure(s): XR cer vical spine 2-3V Accession Number(s): [id number] cc: Arden Barahona M.D. ; Mark Bella M.D. [facility] [place] [id number] Patient Name: WALKER TENA MRN: [id number] date: 1995 Sex: M Assigned Patient Location: RAD Current Patient Location: Accession/Order Numb er: [id number] Exam Date: 11/04/2023 11:00 Report Date: 11/05/2023 13:15 At the request of: MARK BELLA Procedure: XR cervic al spine 2-3V EXAMINATION: XR cerv ical spine 2-3V HISTORY: Neck Pain M54.2 COMPARISON: 10/13/2023 FINDINGS: BONES: Neutral proje ction demonstrates reversal of normal cervical lordosis. No acute fracture or spondylolisthesis. Mild spondylosis and facet osteoarthropathy DISC SPACES: Normal. No significant disc height narrowing, subluxation, or endplate abnormality. PARASPINOUS: Negativ e. No paraspinous abnormality is seen. OTHER: No transient spondylolisthesis with flexion or extension X R/XR cervical spine 2-3V IMPRESSION: Reversal of cervical lordosis in neutral projection with no dynamic instability Electronically authe nticated by: SULEMA REYEZ Date: 11/05/2023 13:15 Dictated By: Sulema Reyez M.D. Signed By: 11/05/231316 DD/ 14 TD/TT: Central Office Inspector: MR cervical spine wo con Reviewed date:11/25/2023 09:02:15 PM Interpretation: Performing Lab: Notes/Report: Source Facility: [place] [address] Magnetic Resonance Report Signed Patient: WALKER TENA MR#: [id number] : 1995 Acct:[id number] Age/Sex: 28 / M ADM Date: 11/25/23 Loc: MRI Attending Dr: Mark Bella M.D. Ordering Physician: Mark Bella M.D. Date of Service: 11/25/23 Procedure(s): MR cervical spine wo con Accession Number(s): [id number] cc: Arden Barahona M.D.; Mark Bella M.D. [facility] [place] [address] Patient Name: WALKER TENA MRN: [id number] date: 1995 Sex: M Assigned Patient Location: MRI Current Patient Location: MRI Accession/Order Number: [id number] Exam Date: 11/25/2023 15:45 Report Date: 11/25/2023 18:24 At the request of: MARK BELLA Procedure: MR cervical spine wo con MR cervical spine wo con, 11/25/2023 3:45 PM EDT INDICATION: Cervical Radiculopathy, Degenerative Disc Disease COMPARISON: Prior x-ray of cervical spine dated 11/04/2023 and 07/08/2021 TECHNIQUE: Multiplanar, multisequential MRI images of cervical spine were obtained without contrast. FINDINGS: The sensitivity of the study has been decreased due to motion artifact. There is normal physiologic cervical lordosis. The vertebral heights are relatively preserved. The cervicomedullary junction is unremarkable. No definite signal abnormality within the spinal cord is noted. There are mild disc osteophyte complex associated with uncovertebral joint arthrosis from C3 to T1 contributing to neuroforaminal and canal stenosis. At the level of C2-C3, there is no neuroforaminal narrowing or canal stenosis. At the level of C3-C4, there is moderate bilateral neuroforaminal narrowing and no canal stenosis. At the level of C4-C5, there is mild bilateral neuroforaminal narrowing and mild canal stenosis. At the level of C5-C6, there is no neuroforaminal narrowing and no canal stenosis. At the level of C6-C7, there is mild right neuroforaminal narrowing and no canal stenosis. Level of C7-T1 is unremarkable. No definite muscular or ligamentous injury is noted. MR/MR cervical spine wo con IMPRESSION: Limited study due to significant motion artifact. Within this confinement, moderate degenerative changes of the cervical spine in particular at C3-C4 and C4-C5. Electronically authenticated by: JOHN PAUL ROBERTSON Date: 11/25/2023 18:24 Dictated By: John Paul Robertson M.D. Signed By: 11/25/231826 DD/ 23 TD/TT: Central Office Inspector: [place] [address] Magnetic Resonance Report Signed Patient: GWENDOLYN TENA MR#: [id number] : 1995 Acct:[id number] Age/Sex: 28 / M ADM Date: 11/25/23 Loc: MRI Attending Dr: Mark Bella M.D. Ordering Physician: Mark Bella M.D. Date of Service: 11/25/23 Procedure(s): MR cer vical spine wo con Accession Number(s): [id number] cc: Arden Barahona M.D. ; Mark Bella M.D. [place] [id number] Patient Name: WALKER TENA MRN: [id number] date: 1995 Sex: M Assigned Patient Location: MRI Current Patient Location: MRI Accession/Order Numb er: [id number] Exam Date: 15:45 Report Date: 11/25/2023 18:24 At the request of: MARK BELLA Procedure: MR cervic al spine wo con MR cervical spine wo con, 11/25/2023 3:45 PM EDT INDICATION: Cervical Radiculopathy, Degenerative Disc Disease COMPARISON: Prior x- ray of cervical spine dated 11/04/2023 and 07/08/2021 TECHNIQUE: Multiplan ar, multisequential MRI images of cervical spine were obtained without contrast. FINDINGS: The sensitivity of t he study has been decreased due to motion artifact. There is normal physiologi c cervical lordosis. The vertebral heights are relatively preserved. The cervicomedullary junction is unremarkable. No definite signal a bnormality within the spinal cord is noted. There are mild disc osteophyte complex associated with uncovertebral joint arthrosis from C3 to T1 contributing to neuroforaminal and canal stenosis. At the level of C2-C 3, there is no neuroforaminal narrowing or canal stenosis. At the level of C3-C 4, there is moderate bilateral neuroforaminal narrowing and no canal stenosis. At the level of C4-C 5, there is mild bilateral neuroforaminal narrowing and mild canal stenosis. At the level of C5-C 6, there is no neuroforaminal narrowing and no canal stenosis. At the level of C6-C 7, there is mild right neuroforaminal narrowing and no canal stenosis. Level of C7-T1 is unremarkable. No definite muscular or ligamentous injury is noted. M R/MR cervical spine wo con IMPRESSION: Limited study due to significant motion artifact. Within this confinement, moderate degenerativ e changes of the cervical spine in particular at C3-C4 and C4-C5. Electronically authe nticated by: JOHN PAUL ROBERTSON Date: 11/25/2023 18:24 Dictated By: John Paul Robertson M.D. 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 Diagnosis 1 Cervical radiculopat hy (M54.12) Referral Organization [facility] Referring Provider First Name Kp Referring Provider Last Name dorie Referring Provider Speciality Family [facility] icine Referred Provider Mark Romero Referred Provider Specialty Orthopedic S urgery Referral Priority Routine Diagnosis 1 Cervical radiculopat hy (M54.12) Referral Organization [facility] Referring Provider First Name Kp Referring Provider Last Name [place] Referring Provider Speciality Family [facility] icine Referred Provider [facility], Physical Therap y Referred Provider Specialty Physical Med icine and Rehabilitation Referral Priority Routine Medications Medication SIG (Take, Route, Fr equency, Duration) Notes Start Date End Date Status lamoTRIgine 150 MG TAKE TWO TABLETS BY MOUTH DAILY for 30 Active traMADol HCl 50 MG 1 tablet as needed O rally tid for 7 days 08/31/2024 Active CeleBREX 200 MG 1 capsule with food Orally Once a day for 30 days 04/20/2024 Active Lyrica 100 MG 1 capsule Orally QHS for 7 days 08/22 Active ARIPiprazole 2 MG 2 tablet Orally Once a day for 30 days Active Xarelto 20 MG TAKE ONE TABLET BY M OUTH DAILY for 30 Active tiZANidine HCl 4 MG 2 tabs [...] been since you last smoked? 1-5 years Alcohol Screen (Audit-C) Question Answer Notes Did you have a drink contain ing alcohol in the past year? Yes How often did you have 6 or more drinks on one occasion in the past year? Never (0 point) How many drinks did you have on a typical day when you were drinking in the past year? 1 or 2 drinks (0 point) How often did you have a dri nk containing alcohol in the past year? Monthly (2 points) Points 2 Interpretation Negative AUDIT-C (Standard) Question Answer Notes Did you have a drink containing alcohol in the p ast year? No Points 0 Interpretation Negative Problems Problem Type SNOMED Code ICD Code Onset Dates Problem Status W/U Status Risk Notes Problem Snoring (94249583) Snoring (R06.83) Active conf irmed Problem Chest pain (31395841) Chest pain (R07.9) Active confirmed Problem Cervical radiculopathy (08471517) Cervical radiculopathy (M54.12) Active confirmed Problem Insomnia (751550210) Insomnia (G47.00) Active confirmed Problem Deep venous thrombosis (926925099) DVT (deep venous thrombosis) (I82.409) Active confirmed Problem Cervical disc disease (204780878) Cervical disc disease (M50.90) Active confirmed Problem 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) 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) Active confirmed Problem Shoulder joint pain (239200126) Shoulder pain, left (M25.512) Active confirmed Problem Poor concentration (47493491) Poor concentration (R41.840) Active confirmed Problem 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) Active confirmed Vital Signs Blood pressure diastolic 92 mm Hg 08/31/2024 Height 76.5 in 08/31/2024 Blood pressure systolic 158 mm Hg 08/31/2024 Weight 308.2 lbs 08/31/2024 BMI 37.02 kg/m2 08/31/2024 Encounters Encounter Location Date Provider Diagnosis [facility] [address] [place] [address] 04/28/2024 Kp Hoy Head ache 784.0 [facility] [address] [place] [address] 09/30/2023 Kp Hoy Cervical radiculopat hy M54.12 [facility] [address] [place] [address] 04/20/2024 Kp Hoy Chest pain R07.9 [facility] [address] [facility] [place] [address] 08/31/2024 Kp Hoy Lumbago due to displacement of intervertebral disc M51.26 [facility] [address] [facility] [place] [address] 04/11/2024 Kp Hoy [facility] [address] [facility] [place] [address] 05/15/2024 Kp Hoy [facility] [address] [facility] [place] [address] 05/15/2024 Kp Hoy [facility] [address] [facility] [place] [address] 05/23/2024 Kp Hoy Chest pain R07.9 [facility] [address] [facility] [place] [address] 06/07/2024 Kp Hoy Chest pain R07.9 [facility] [address] [facility] [place] [address] 08/31/2024 Kp Hoy Fatigue R53.83 [facility] [address] [facility] [place] [address] 09/28/2023 Kp Hoy [facility] [address] [facility] [place] [address] 10/05/2023 Kp Hoy Lumbago due to displacement of intervertebral disc M51.26 and Cervical radiculopathy M54.12 [facility] [address] [facility] [place] [address] 10/13/2023 Kp Hoy Cervical radiculopat hy M54.12 [facility] [address] [facility] [place] [address] 11/18/2023 Kp Hoy [facility] [address] [facility] [place] [address] 01/10/2024 Kp Hoy Cervical radiculopat hy M54.12 [facility] [address] [facility] [place] [address] 03/07/2024 Kp Barahona Cervical radiculopat hy M54.12 Assessments Encounter Date Diagnosis (ICD Code) Assessment Notes Treatment Notes Treatment Clinical Notes Section Notes 09/30/2023 Cervical radiculopathy (ICD-10 - M54.12) 04/20/2024 Chest pain (ICD-10 - R07.9) blancaradha melendrez cardiolyte - has suregyer coming up for cervical disk disease 04/28/2024 Head ache (ICD9-CM - 784.0) 08/31/2024 Lumbago due to displacement of intervertebral disc (ICD-10 - M51.26) 10/05/2023 Lumbago due to displacement of intervertebral disc (ICD-10 - M51.26) 10/13/2023 Cervical radiculopathy (ICD-10 - M54.12) 01/10/2024 Cervical radiculopathy (ICD-10 - M54.12) 03/07/2024 Cervical radiculopathy (ICD-10 - M54.12) 05/23/2024 Chest pain (ICD-10 - R07.9) 06/07/2024 Chest pain (ICD-10 - R07.9) 08/31/2024 Fatigue (ICD-10 - R53.83) 10/05/2023 Cervical radiculopathy (ICD-10 - M54.12) 04/20/2024 Other Discussed increasing physical exercise and continuing/impl ementing a healthier diet. 04/28/2024 Other Take NSAIDs as needed for pain. Discussed avoiding headache triggers and improiving diet and sleep habits to prevent headaches. 08/31/2024 Other Recommended to rest and use a heating pad on the area. Take NSAIDs for pain as needed Plan Of Treatment Pending Test Test Name Order Date MRI : Thoracic spine 02/01/2023 CMP (COMPLETE METABOLIC PANEL) 3 HEMOGLOBIN A1C (GLYCO) 10/28/2022 INSULIN, TOTAL 10/28/2022 LIPID PANEL (CHOL/TRIG/HDL/LDL) 10/29/19 23 CBC WITH DIFF 10/28/2022 INFLUENZA A and B, NASAL/NASOPHARYNGEAL (PCR) 01/28/2023 CMP - Comprehensive Metabolic Panel 08/22 CBC W/AUTO DIFF 08/31/2024 Treadmill Stress Test with Nuclear Imagi ng 04/20/2024 SARS COVID-2 NASAL - PCR 01/28/2023 AMMONIA 08/31/2024 AMYLASE 08/31/2024 CRP 08/31/2024 LIPASE 08/31/2024 SED RATE WESTERGREN 08/31/2024 MRI CSPINE WO CON 09/30/2023 MRI CSPINE WO CON 08/17/2022 THYROID PANEL (T4/TSH/FREE T3) 3 Insurance Providers Payer Name Payer Address Payer Phone Subscriber Number Group Number Insured Name Patient Relationship to Insured Coverage Start Date Coverage End Date [facility] [address] [address] [place] [address] [phone] [id number] Walker Tena Self - patient is the insured Medications Administered Medication Instructions Date of Administration Dosage Notes Ketorolac Tromethamine 08/31/2024 60 mg Orphenadrine Citrate 08/31/2024 60 mg Triamcinolone 40 mg/ml 08/31/2024 120 mg Medical (General) History Medical History History ICD Code Snoring R06.83 Acute deep vein thrombosis (DVT) of righ t upper extremity I82.621 Acute insomnia G47.00 Anxiety associated with depression F41.8 Degeneration of cervical intervertebral disc M50.30 Shoulder pain, left M25.512 Poor concentration R41.840 DVT (deep venous thrombosis) I82.409 Cervical disc disease M50.90 Surgical History Surgery Date(Month/Year) nerves madrigal in back 2021
--- OUTSIDE RECORDS SUMMARY | 2024-09-18 15:20 | XMS_ITS | Patient Health Record ---
Author Organization [facility] Address [address] [place] [address] Care Team Providers Care Eastern Philosophy Professor Name Role Phone Arden Shi Primary Care Provider 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) NEED INSURANCE, Suri Vo 10/05/2023 07:10:04 AM >SENT TEXT/AUTO CALL Referral Priority Routine Reason APPROVED............ ..............NOT SCHEDULED........................[facility] MRI CERVICAL TO BE DONE AT [facility] Diagnosis 1 DDD (degenerative di sc disease), cervical (M50.30) Diagnosis 2 Cervical radiculopat hy (M54.12) Referral Organization [facility] Referring Provider First Name Rupali Referring Provider Last Name St Holder Referring Provider Speciality Orthopedic Surgery Referred Organization [facility] chito Referred Address [place], [place], Procedure 1 MRI Cervical w/o dye ([address]446) General Notes Katie Burciaga 2023 04:35:17 PM >, Nasreen Trotter 11/05/2023 07:27:42 AM > WAITING ON 11/04/23 OFFICE NOTE, Nasreen Trotter 11/08/2023 12:31:26 PM > AUTHORIZATION # [id number] APPROVED 11/08/23-12/23/23 PER [facility] PROVIDER PORTAL. SCANNED INTO CHART AND FAXED TO AR[facility].Leonardo Sara 11/09/2023 09:54:50 AM > order faxed Referral Priority Routine Reason [facility] Diagnosis 1 Cervical spinal sten osis (M48.02) Referral Organization [facility] Referring Provider First Name Rupali Referring Provider Last Name St Holder Referring Provider Speciality Orthopedic Surgery Referred Organization [facility] General Notes Katie Burciaga 2024 09:46:32 AM >Gualberto Dawn 05/22/2024 09:09:08 AM >FAXED, Katie Burciaga 05/24/2024 01:01:44 PM >faxed Referral Priority Routine Medications Medication SIG (Take, Route, Fr equency, Duration) Notes Start Date End Date Status Xarelto Active methocarbamol Active LaMICtal Active gabapentin 300 mg 1 cap(s) orally 3 ti mes a day for 30 days 05/12/2024 Active Social History Tobacco Use: Social History Observation Description Date Details (start date - stop date) Former Smoker NA - NA AUDIT-C (Standard) Question Answer Notes Did you have a drink containing alcohol in the p ast year? No Points 0 Interpretation Negative Tobacco Control (Standard) Question Answer Notes Tobacco use: Former smoker How long has it been since you last smoked? 1-5 years Problems Problem Type SNOMED Code ICD Code Onset Dates Problem Status W/U Status Risk Notes Problem 21349714 Cervical radiculopathy (M54.12) Active confirmed Problem 66768281 Cervical spinal stenosis (M48.02) Active confirmed Problem 684188154760620 shelter (current) use of opiate analgesic (Z79.891) Active confirmed Problem 53091564 Other cervical disc degeneration at C4-C5 level (M50.321) Active confirmed Problem 52058219 Other cervical disc degeneration, high cervical region (M50.31) Active confirmed Encounters Encounter Location Date Provider Diagnosis [address] [address] 11/04/2023 [place] Degeneration of intervertebral disc of high cervical region M50.31 ; Degeneration of intervertebral disc at C4-C5 level M50.321 and Cervical radiculopathy M54.[address] [address] 05/12/2024 [place] Cervical spinal stenosis M48.02 ; Cervical radiculopathy M54.12 ; Other cervical disc degeneration, high cervical region M50.31 ; Other cervical disc degeneration at C4-C5 level M50.321 and oysterman (current) use of opiate analgesic Z79.891 Assessments Encounter Date Diagnosis (ICD Code) Assessment Notes Treatment Notes Treatment Clinical Notes Section Notes 11/04/2023 Degeneration of intervertebral disc at C4-C5 level (ICD-10 - M50.321) 1. C2-3, C4-5 DDD/radicul opathy 11/04/2023 Degeneration of intervertebral disc of high cervical region (ICD-10 - M50.31) 1. C2-3, C4-5 DDD/radicul opathy 05/12/2024 Cervical radiculopathy (ICD-10 - M54.12) 1. C3-5 stenosis/ra diculopathy /DDD 05/12/2024 Cervical spinal stenosis (ICD-10 - M48.02) 1. C3-5 stenosis/ra diculopathy /DDD 11/04/2023 Cervical radiculopathy (ICD-10 - M54.12) 1. C2-3, C4-5 DDD/radicul opathy 05/12/2024 Other cervical disc degeneration, high cervical region (ICD-10 - M50.31) 1. C3-5 stenosis/ra diculopathy /DDD 05/12/2024 Other cervical disc degeneration at C4-C5 level (ICD-10 - M50.321) 1. C3-5 stenosis/ra diculopathy /DDD 05/12/2024 oysterman (current) use of opiate analgesic (ICD-10 - Z79.891) 1. C3-5 stenosis/ra diculopathy /DDD 11/04/2023 Other Patient evaluated by myself and Dr. Bella today. Plan established by Dr. Bella. Patient had a thoracic MRI completed that we did review, but his symptoms at this time are more consistent with cervical pain and radiculopathy. I have ordered an MRI of the cervical spine to evaluate for any neural compression. We will see the patient back after imaging is complete to review results and provide further recommendations. The patient is very much in agreement with the treatment and/or diagnostic plan set forth and all questions were answered to the patient's satisfaction. Thanks once again. If we can be of further service to your patients with disorders of the spine, cervical, thoracic, or lumbar, please do not hesitate to contact Dr. Bella. Best regards, 1. C2-3, C4-5 DDD/radicul opathy 05/12/2024 Other Plan established by Dr. Bella. At this time, Dr. Bella discussed MRI results with the patient and is recommending nonoperative management. We did give patient a prescription for physical therapy and will refer to pain management to evaluate and treat. We did give patient a prescription for gabapentin and tramadol to help his pain and symptoms until his pain management appointment. We will see patient back on an as-needed basis. The patient is very much in agreement with the treatment and/or diagnostic plan set forth and all questions were answered to the patient's satisfaction. Thanks once again. If we can be of further service to your patients with disorders of the spine, cervical, thoracic, or lumbar, please do not hesitate to contact Dr. Bella. Best regards, 1. C3-5 stenosis/ra diculopathy /DDD Plan Of Treatment Pending Test Test Name Order Date Cervical spine 2 v FLEX, EXT - 13984 01/2024 SFS - Cervical Spine PT Orde r, Isometrics & Strenghening w/Modalities as needed. 2-3 x Week for 4-6 Weeks 05/12/2024 MRI : Cervical Spine W/O Contrast - 7214 1 11/04/2023 Insurance Providers Payer Name Payer Address Payer Phone Subscriber Number Group Number Insured Name Patient Relationship to Insured Coverage Start Date Coverage End Date [facility] [address] [address] [place] [address] [id number] WALKER CASTILLO Self - patient is the insured Medical (General) History Medical History History ICD Code Anxiety Depression Seen a Psychiatrist
[2024-09-18 15:44] LABS: Hematocrit 41.4 % (42.0-54.0); Hemoglobin 13.9 g/dL (14.0-18.0); Immature Granulocytes Abs Auto 0.01 10^3/uL (0.00-0.03); Immature Granulocytes Pct Auto 0.2 % (0.0-0.5); Lymphocytes Absolute Auto 1.7 10^3/uL (1.2-3.8); Mean Corpuscular HGB Conc 33.6 g/dL (29.9-35.2); Mean Corpuscular Hemoglobin 27.3 pg (25.9-34.0); Mean Corpuscular Volume 81.3 fL (80.0-94.0); Platelet Count 314 10^3/uL (150-450); Red Blood Count 5.09 10^6/uL (4.70-6.10); White Blood Count 6.1 10^3/uL (4.0-11.0)
[2024-09-18 15:51] LABS: Ammonia 27 umol/L (11-32)
[2024-09-18 16:36] LABS: Alanine Aminotransferase 37 U/L (16-63); Albumin Globulin Ratio 1.3; Albumin Level 4.3 g/dL (3.4-5.0); Alkaline Phosphatase 129 U/L (46-116); Amylase 107 U/L (25-115); Anion Gap 12.8; Aspartate Amino Transferase 18 U/L (15-37); Blood Urea Nitrogen 6.0 mg/dL (7.0-18.0); Calcium 9.4 mg/dL (8.5-10.1); Carbon Dioxide 29.0 mmol/L (21.0-32.0); Chloride 103 mmol/L (98-107); Estimated GFR (African America >60 (>=60 mL/min/1.73m^2); Estimated GFR (Non-African Ame >60 (>=60 mL/min/1.73m^2); Globulin 3.3 g/dL; Glucose 87 mg/dL (74-106); Lipase 237.0 U/L (16.0-77.0); Potassium 3.8 mmol/L (3.5-5.1); Sodium 141 mmol/L (136-145); Total Protein 7.6 g/dL (6.4-8.2)
== END 2024-09-18 15:17 | disposition home or self-care (01) ==
LOC: LAB 15:17
PROVIDERS: PCP Family Medicine; Visit Provider Family Medicine
DX: R53.83 Other fatigue (principal)
CPT/HCPCS: 36415; 80053; 82140; 82150; 83690; 85025; 85652; 86140

== ENCOUNTER 2024-09-22 13:23 | Outpatient (OUT) | payer OTHER, SELFPAY ==
--- NOTE | 2024-09-22 | US_ITS ---
[place] [address] Patient Name: WALKER CASTILLO MRN: [id number] date: 1995 Sex: M Assigned Patient Location: US Current Patient Location: US Accession/Order Number: [id number] Exam Date: 09/22/2024 14:47 Report Date: 09/22/2024 14:48 At the request of: PAULA SHI MD Procedure: US right upper quadrant LIMITED ABDOMINAL ULTRASOUND: CLINICAL HISTORY: PANCREATITIS K85.90 COMPARISON: None TECHNIQUE: Grayscale and color Doppler images of the right upper quadrant organs were obtained. FINDINGS: Pancreas: Visualized portions appear unremarkable. Liver: Unremarkable. Gallbladder: Unremarkable. CBD: 3.2 mm RT KIDNEY: No Hydronephrosis US/US right upper quadrant IMPRESSION: NO ACUTE PROCESS. . Impression dictated by: Esteban Red Jr., D.O. 09/22/2024 2:48 PM Dictation Location: [place] [address] Electronically authenticated by: [id number] Y Date: 09/22/2024 14:48
[2024-09-22 14:06] LABS: Alanine Aminotransferase 37 U/L (16-63); Albumin Globulin Ratio 1.5; Albumin Level 4.6 g/dL (3.4-5.0); Alkaline Phosphatase 118 U/L (46-116); Anion Gap 14.0; Aspartate Amino Transferase 22 U/L (15-37); Blood Urea Nitrogen 15.0 mg/dL (7.0-18.0); Calcium 9.2 mg/dL (8.5-10.1); Carbon Dioxide 27.1 mmol/L (21.0-32.0); Chloride 103 mmol/L (98-107); Estimated GFR (African America >60 (>=60 mL/min/1.73m^2); Estimated GFR (Non-African Ame >60 (>=60 mL/min/1.73m^2); Globulin 3.1 g/dL; Glucose 89 mg/dL (74-106); Lipase 33.0 U/L (16.0-77.0); Potassium 4.1 mmol/L (3.5-5.1); Sodium 140 mmol/L (136-145); Total Protein 7.7 g/dL (6.4-8.2)
== END 2024-09-22 13:24 | disposition home or self-care (01) ==
PROVIDERS: PCP Family Medicine; Visit Provider Family Medicine
DX: K85.90 Acute pancreatitis without necrosis or infection, unspecified (principal)
CPT/HCPCS: 36415; 76705; 80053; 83690

== ENCOUNTER 2025-02-06 14:59 | Outpatient (OUT) | payer OTHER, SELFPAY ==
--- OUTSIDE RECORDS SUMMARY | 2023-11-12 06:10 | XMS_ITS ---
Author Organization [facility] Address [address] [place] [address] Care Team Providers Care Hairspring Assembler Name Role Phone Arden Barahona Primary Care Provider Rupali Wang Unavailable [phone] REASON FOR VISIT CERVICAL PAIN Encounters Encounter Location Date Provider Diagnosis [facility] Office [address] [place] [address] [address] [place] [address] 11/12/2023 Rupali Romero Plan Of Treatment No Information Progress Notes * WALKER CASTILLODOB: 5 (29 yo M)Acc No.[id number]:11/12/2023 Patient:?WALKER CASTILLO :?Rupali Bella MD, PhDDOB:1995 ???Age:28 Y???Sex:MaleDate:4Phone:[phone]:[address] [place] [address]Pcp:Arden Barahona Subjective: * Chief Complaints: * 1 . CERVICAL PAIN. * Medical History: Objective: * Vitals: Assessment: Plan: * Treatment: Forms: * Images: * Electronic signature of Rupali Romero MD, PHD on 02/06/2025 at 03:05 PM EST Sign off status: Pending * Provider: Fan Bella MD, PhD Date: 0 11/12/2023 Generated for Printing/Faxing/eTransmitting on:?02/06/2025 03:05 PM EST
--- OUTSIDE RECORDS SUMMARY | 2023-12-24 06:30 | XMS_ITS ---
Author Organization [facility] Address [address] [place] [address] Care Team Providers Care Fiscal Analyst Name Role Phone Arden Barahona Primary Care Provider Rupali Wang [phone] REASON FOR VISIT cervical mri review Medications Medication SIG (Take, Route, Frequency, Duration) Notes Start Date End Date Status Xarelto ActivemethocarbamolActiveLaMICtalActive Encounters Encounter Location Date Provider Diagnosis [facility] Office [address] [place] [address] [place] [address] 12/24/2023 Rupali Romero Plan Of Treatment No Information Progress Notes * WALKER CASTILLODOB: [birth year] (29 yo M)Acc No.[id number]:12/24/2023 Patient:?ANNA WALKER Sheriff :?Rupali Bella MD, PhDDOB:1995 ???Age:28 Y???Sex:MaleDate:4Phone:[phone]:[address] [place], [place] [address]Pcp:Arden Barahona Subjective: * Chief Complaints: * 1 . Cervical mri review. * Medical History: * Medications: T aking methocarbamol , Taking LaMICtal , Taking Xarelto Objective: * Vitals: Assessment: Plan: * Treatment: Forms: * Images: * Electronic signature of Rupali Romero MD, PHD on 02/06/2025 at 03:04 PM EST Sign off status: Pending * Provider: Fan Bella MD, PhD Date: 02/22/2023 Generated for Printing/Faxing/eTransmitting on:?02/06/2025 03:04 PM EST
--- OUTSIDE RECORDS SUMMARY | 2024-01-07 06:30 | XMS_ITS ---
Author Organization [facility] Address [address] [place] [address] Care Team Providers Care Research Biologist Name Role Phone Arden Barahona Primary Care Provider Rupali Wang [phone] REASON FOR VISIT cervical mri review Medications Medication SIG (Take, Route, Frequency, Duration) Notes Start Date End Date Status methocarbamol ActiveLaMICtalActiveXareltoActive Encounters Encounter Location Date Provider Diagnosis [facility] [address] [place] [address] [place] [address] 01/07/2024 Rupali Romero Plan Of Treatment No Information Progress Notes * WALKER CASTILLODOB: 5 (29 yo M)Acc No.[id number]:01/07/2024 Patient:?ANNA WALKER Sheriff :?Rupali Bella MD, PhDDOB:1995 ???Age:28 Y???Sex:MaleDate:4Phone:[phone]:[address] [place], [place] [address]Pcp:Arden Barahona Subjective: * Chief Complaints: * 1 . Cervical mri review. * Medical History: * Medications: T aking methocarbamol , Taking LaMICtal , Taking Xarelto Objective: * Vitals: Assessment: Plan: * Treatment: Forms: * Images: * Electronic signature of Rupali Romero MD, PHD on 02/06/2025 at 03:04 PM EST Sign off status: Pending * Provider: Fan Bella MD, PhD Date: 03/08/2023 Generated for Printing/Faxing/eTransmitting on:?02/06/2025 03:04 PM EST
--- OUTSIDE RECORDS SUMMARY | 2024-11-10 09:45 | XMS_ITS ---
Author Organization [facility] [place] Address [address] [place] [address] Care Team Providers Care Reception Agent Name Role Phone Kp Barahona Primary Care Provider [phone] REASON FOR VISIT pain meds not working want different Encounters Encounter Location Date Provider Diagnosis [facility] [address] [place] [address] 11/10/2024 Kp Barahona Plan Of Treatment No Information Progress Notes * Jose TENADOB: 5 (29 yo M)Acc No.[id number]:11/10/2024 UNLOCKED PROGRESS NOTE Progress Note Patient: Jose VELOZ :?Arden Barahona (PATRICIA), MDDOB:1995???Age: 29 Y???Sex:MaleDate:11/10/2024Phone:[phone]:[address] [place], [place] [address] Subjective: * Chief Complaints: * 1 . Pain meds not working want different. * Medical History: Objective: * Vitals: Assessment: Plan: * Treatment: * * Electronic signature of Kp Barahona MD, [id number] on 02/06/2025 at 03:04 PM EST Sign off status: PendingVisit Status:?CANCPHONE (Cancelled Phone) * Provider: Jo Barahona MD (TTC) Date: 0 11/10/2024 Generated for Printing/Faxing/eTransmitting on:?02/06/2025 03:04 PM EST
--- OUTSIDE RECORDS SUMMARY | 2025-02-06 15:04 | XMS_ITS | Clinical Summary ---
Author Organization [facility] Address [address], [address] [place] [address] Care Team Providers Care Electroencephalogram Technologist Name Role Phone Arden Barahona MD Primary Care Provider [phone] Allergies No known active allergies Medications MedicationSigDispense QuantityRefillsLast FilledStart DateEnd DateStatus ARIPiprazole (ABILIFY) 10 MG tablet 1 tablet dailyActive celecoxib (CELEBREX) 100 MG capsule 1 capsuleActive lamoTRIgine (LAMICTAL) 150 MG tablet 1 tablet 2 tablets once daily5Active rivaroxaban (XARELTO) 20 MG TABS tablet 1 tabletActive pregabalin (LYRICA) 100 MG capsule Take 1 capsule by mouth daily.5Active traMADol (ULTRAM) 50 MG tablet Take 1 tablet by mouth.5Active Active Problems ProblemNoted DateDiagnosed DateMorning joint nryybvbzb33/05/2025Kyphosis 07/27/2024Inflammatory spondylopathy of thoracic oitxdu2507/27/2024 Immunizations ImmunizationAdministration DatesNext IboZAC0909/22/1994,1994,1994DTaP iybexdp9909/01/1999,06/24/1995Hep B, ENGERIX-B, RECOMBIVAX-HB, (age - 19y), IM, 0.5mL1994,1994,1994Hib qtixuty5609/22/1994,1994, 1994MMR, PRIORIX, M-M-R II, (age 12m+), SC, 0.5mL09/01/1999,06/24/1995 Polio OPV1994,1994,1994Poliovirus, IPOL, (age 6w+), SC/IM, 0.5mL07 Social History Tobacco UseTypesPacks/DayYears UsedDateSmoking Tobacco: FctuppUshzhatmju7183 - 2018Smokeless Tobacco: Never Tobacco Cessation:Counseling Given: Yes Alcohol UseStandard Drinks/WeekCommentsNot Currently0 (1 standard drink = 0.6 oz pure alcohol)Sex and Gender InformationValueDate RecordedSex Assigned at Male05/31/2024 7:21 AM EDTLegal JpqDugq7305/16/2024 10:04 AM EDTGender Identity Male05/31/2024 7:21 AM EDTSexual LjdtgkpkvraYhmsdukz52/09/2025 7:21 AM EDT Last Filed Vital Signs Vital SignReadingTime TakenCommentsBlood Sokwejvb390/8606 2:52 PM EDT Erwyq938207/27/2024 2:52 PM EDTTemperature--Respiratory Ckki7958 8:24 AM EDTOxygen Saturation--Inhaled Oxygen Concentration--Bndjqc685.2 kg (306 lb 12.8 oz)07/27/2024 2:52 PM VEVNdqbxn623 cm (6' 4 )07/27/2024 2:52 PM EDTBody Mass Index37.3406 2:52 PM EDT Plan of Treatment Health MaintenanceDue DateLast DoneCommentsDTaP/Tdap/Td vaccine (6 - Tdap) , 06/24/1995, 1994, Additional history exists Depression Ttpczw0203/06/2006Varicella vaccine (1 of 2 - 13+ 2-dose series) 2007HIV grjzqc4203/06/2009Hepatitis C qsbjve0703/06/2012Flu vaccine (#1) 5COVID-19 Vaccine (2024- season)509/, 10/23/2020 Hepatitis B zkkpxjnXodsfjssj40/01/1995, 1994, 1994Hib vaccineAged Out1994, 1994, 1994No longer eligible based on patient's age to complete this topicPolio nxldjkuNgotrhhka64/10/2000, 1994, 1994, Additional history existsHPV vaccine (No Doses Required)CompletedHepatitis A vaccineAged OutNo longer eligible based on patient's age to complete this topic Meningococcal (ACWY) vaccineAged OutNo longer eligible based on patient's age to complete this topicMeningococcal B vaccineAged OutNo longer eligible based on patient's age to complete this topicPneumococcal 0-49 years VaccineAged OutNo longer eligible based on patient's age to complete this topic Insurance * Guarantor: Sandeep Tena TypeRelation to PatientDate of BirthPhone Billing AddressPersonal/PpxmbsCdwd59/13/1996 [facility] [place] [address] Care Teams Team MemberRelationshipSpecialtyStart DateEnd Date Arden Barahona MD [address] [place] [address] PCP - GeneralFamily Medicine05/31/24
--- OUTSIDE RECORDS SUMMARY | 2025-02-06 15:04 | XMS_ITS | Clinical Summary ---
Author Organization [facility] Address [address] [place] [address] Care Team Providers Care Mat Machine Tender Name Role Phone Unavailable Primary Care Provider Unavailabl e Social History Tobacco UseTypesPacks/DayYears UsedDateSmoking Tobacco: Never AssessedSex and Gender InformationValueDate RecordedSex Assigned at BirthNot on fileLegal Sex Male05/06/2022 7:09 PM EDTGender IdentityNot on fileSexual OrientationNot on file Plan of Treatment Not on file Insurance
--- OUTSIDE RECORDS SUMMARY | 2025-02-06 15:05 | XMS_ITS | Patient Health Record ---
Author Organization [facility] [place] Address [address] [place] [address] Care Team Providers Care Cath Lab Nurse Name Role Phone Kp Shi Primary Care Provider Allergies No Known Allergies Results Component Value Reference Range Notes AMMONIA Reviewed date:09/18/2024 04:07:52 PM Interpretation: Performing Lab: Notes/Report: [facility] , Ammonia 27 11-32 umol/L Performing Lab:see note - [facility] LBAMYLASE Reviewed date:09/19/2024 08:05:57 AM Interpretation: Performing Lab: Notes/Report: [facility] ,Rxtmizp46757-560 U/LPerforming Lab:see note - [facility] LBCRP Reviewed date:09/19/2024 08:05:57 AM Interpretation: Performing Lab: Notes/Report: [facility] ,C Reactive Protein<0.50<=0.50 mg/dLPerforming Lab:see note - [facility] LBLIPASE Reviewed date:09/19/2024 08:05:57 AM Interpretation: Performing Lab: Notes/Report: [facility] ,Yhlqnw081.016.0-77.0 U/LPerforming Lab:see Replaced by [facility] LB PROF 14(COMP METB) Reviewed date:09/19/2024 08:05:57 AM Interpretation: Performing Lab: Notes/Report: [facility] ,Qalqpc707872-285 mmol/LPotassium3.83.5-5.1 mmol/HSyhilmbh59859-575 mmol/LCarbon Anhiyvw10.021.0-32.0 mmol/LAnion Gap12.1Egkqtvu3393-248 mg/dLBlood Urea Nitrogen 6.07.0-18.0 mg/dLCreatinine0.820.70-1.30 mg/dLEstimated GFR ( Padmini>60 >=60 mL/min/1.73m 2Estimated GFR (Non- Renata>60>=60 mL/min/1.73m 2BUN Creatinine Ratio7.1Byvjydw2.48.5-10.1 mg/dLBilirubin Total0.30.2-1.0 mg/dL Aspartate Amino Qbreglwjait1752-90 U/LAlanine Qrltkhbtzdggppym8039-05 U/L Alkaline Milpmfdenls01034-198 U/LTotal Protein7.66.4-8.2 g/dLAlbumin Level4.3 3.4-5.0 g/dLGlobulin3.3Albumin Globulin Ratio1.3Performing Lab:see noteML - [facility] LBErythrocyte Sedimentation Rate Reviewed date:09/18/2024 04:07:52 PM Interpretation: Performing Lab: Notes/Report: [facility] ,Erythrocyte Sedimentation Rate9<=15 mm/hrPerforming Lab:see noteML - [facility] LBPROF 14(COMP METB) Reviewed date:09/24/2024 08:35:23 PM Interpretation: Performing Lab: Notes/Report: [facility] ,Oqtmxk107753-293 mmol/LPotassium4.13.5-5.1 mmol/AKzcytqot20242-709 mmol/LCarbon Gylcfty80.121.0-32.0 mmol/LAnion Gap14.3Yisjsxi7626-844 mg/dLBlood Urea Nitrogen 15.07.0-18.0 mg/dLCreatinine0.970.70-1.30 mg/dLEstimated GFR ( Padmini>60 >=60 mL/min/1.73m 2Estimated GFR (Non- Renata>60>=60 mL/min/1.73m 2BUN Creatinine Ratio15.8Ocjpiwd9.28.5-10.1 mg/dLBilirubin Total0.50.2-1.0 mg/dL Aspartate Amino Iylqtgsnwxn2865-01 U/LAlanine Htdlmtodaqdpwpcv3450-58 U/L Alkaline Kshcazzquoa40075-094 U/LTotal Protein7.76.4-8.2 g/dLAlbumin Level4.6 3.4-5.0 g/dLGlobulin3.1Albumin Globulin Ratio1.5Performing Lab:see noteML - [facility] LBUS right upper quadrant Reviewed date:09/24/2024 08:35:23 PM Interpretation: Performing Lab: Notes/Report: Source Facility: [place] [address] Ultrasound Report Signed Patient: WALKER TENA MR#: [id number] : 1995 Acct:[id number] Age/Sex: 29 / M ADM Date: 09/22/24 Loc: US Attending Dr: Arden Shi M.D. Ordering Physician: Arden Shi M.D. Date of Service: 09/22/24 Procedure(s): US right upper quadrant Accession Number(s): [id number] cc: Arden Shi M.D. [place] [address] Patient Name: WALKER TENA MRN: [id number] date: 1995 Sex: M Assigned Patient Location: Current Patient Location: US Accession/Order Number: [id number] Exam Date: 09/22/2024 14:47 Report Date: 09/22/2024 14:48 At the request of: ARDEN SHI MD Procedure: US right upper quadrant LIMITED ABDOMINAL ULTRASOUND: CLINICAL HISTORY: PANCREATITIS K85.90 COMPARISON: None TECHNIQUE: Grayscale and color Doppler images of the right upper quadrant organs were obtained. FINDINGS: Pancreas: Visualized portions appear unremarkable. Liver: Unremarkable. Gallbladder: Unremarkable. CBD: 3.2 mm RT KIDNEY: No Hydronephrosis US/US right upper quadrant IMPRESSION: NO ACUTE PROCESS. . Impression dictated by: Esteban Red Jr., D.O. 09/22/2024 2:48 PM Dictation Location: [place] [address] Electronically authenticated by: [id number] Y Date: 09/22/2024 14:48 Dictated By: Esteban Red M.D. Signed By: 09/22/24 1450 DD/ 1448 TD/TT: English Adjunct Faculty:LIPASE Reviewed date:09/24/2024 08:35:23 PM Interpretation: Performing Lab: Notes/Report: [facility] ,Dnbxyr95.016.0-77.0 U/LPerforming Lab:see noteML - [facility] LBCBC AUTO DIFF Reviewed date:09/18/2024 04:07:52 PM Interpretation: Performing Lab: Notes/Report: [facility] ,White Blood Count6.14.0-11.0 10 3/uLRed Blood Count5.094.70-6.10 10 6/uL Gonsvdbqcv90.914.0-18.0 g/jMIpuatavplp98.442.0-54.0 %Mean Corpuscular Dwohbi37.3 80.0-94.0 fLMean Corpuscular Jhjdmknsol64.325.9-34.0 pgMean Corpuscular HGB Conc 33.629.9-35.2 g/dLRed Cell Distribution Width13.311.0-15.0 %Platelet Uylqx138 150-450 10 3/uLMean Platelet Volume8.89.5-13.5 fLNeutrophils Percent Auto63.7 43.0-75.0 %Lymphocytes Percent Auto28.120.5-60.0 %Monocytes Percent Auto6.21.7- 12.0 %Eosinophils Percent Auto1.10.9-7.0 %Basophils Percent Auto0.70.2-2.0 % Immature Granulocytes Pct Auto0.20.0-0.5 %Neutrophils Absolute Auto3.91.4-6.5 10 3/uLLymphocytes Absolute Auto1.71.2-3.8 10 3/uLMonocytes Absolute Auto0.40.3-0.8 10 3/uLEosinophils Absolute Auto0.10.0-0.7 10 3/uLBasophils Absolute Auto0.00.0- 0.1 10 3/uLImmature Granulocytes Abs Auto0.010.00-0.03 10 3/uLPerforming Lab:see noteML - [facility] Reason For Referral No Information Medications Medication SIG (Take, Route, Frequency, Duration) Notes Start Date End Date Status lamoTRIgine 150 MG TAKE TWO TABLETS BY MOUTH GUNNER LY; Duration: 30 ActiveXarelto 20 MGTAKE ONE TABLET BY MOUTH DAILY; Duration: 30Active ARIPiprazole 2 MG2 tablet Orally Once a day; Duration: 30 daysActiveJournavx 50 MGtwo once, then in 12 hours take bid Orally twice a day; Duration: 14 days 5Active Social History Tobacco Use: Social History Observation Description Date Details (start date - stop date) Former Smoker 02/22/2017 - 02/22/2019 Tobacco Use/Smoking Question Answer Notes Patient is a former smoker When did you start smoking?02/22/2017When did you stop smoking?02/22/2019How long has it been since you last smoked?1-5 yearsAUDIT-C (Standard) Question Answer Notes Did you have a drink containing alcohol in the p ast year? No Xldcso5KcothjvezetiiaCtduzmhi Problems Problem Type SNOMED Code ICD Code Onset Dates Problem Status W/U Status Risk Notes Problem Snoring (96648685) Snoring (R06.83) ActiveconfirmedProblemChest pain (78962081)Chest pain (R07.9)Activeconfirmed ProblemCervical radiculopathy (56723766)Cervical radiculopathy (M54.12)Active confirmedProblemInsomnia (005762065)Insomnia (G47.00)ActiveconfirmedProblemDeep venous thrombosis (448328166)DVT (deep venous thrombosis) (I82.409)Active confirmedProblemCervical disc disease (165396211)Cervical disc disease (M50.90) ActiveconfirmedProblemDisplacement of lumbar intervertebral disc without myelopathy (17349055)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) ActiveconfirmedProblemShoulder joint pain (278065537)Shoulder pain, left (M25.512)ActiveconfirmedProblemPoor concentration (27216844)Poor concentration (R41.840)ActiveconfirmedProblemJuvenile osteochondrosis of spine (29882095) Scheuermann's kyphosis (M42.00)ActiveconfirmedProblemLow back pain (finding) (299287121)Low back pain at multiple sites (M54.50)Activeconfirmed Vital Signs Blood pressure diastolic 80 mm Hg 01/15/2025 Lsvxcu94.5 in01/15/2025lood pressure zpqucxxg094 mm Hg01/15/20257687Bngfok933 lbs 01/15/2025BMI37 kg/m201/15/2025 Encounters Encounter Location Date Provider Diagnosis [facility] [address] [place] [address] 04/28/2024 Kp Hoy Head ache 784.0 [facility] [address] [place] [address] 01/15/2025 Kp Hoy Low back pain at mul tiple sites M54.50 [facility] [address] [place] [address] 04/20/2024 Kp Hoy Chest pain R07.9 [facility] [address] [place] [address] 08/31/2024 Kp Hoy Lumbago due to displacement of intervertebral disc M51.26 [facility] [address] [place] [address] 09/19/2024 Kp Hoy Pancreatitis, acute K85.90 [facility] [address] [place] [address] 09/20/2024 Kp Hoy Lumbago due to displacement of intervertebral disc M51.26 [facility] [address] [place] [address] 09/24/2024 Kp Hoy [facility] [facility] [place] [address] 11/09/2024Doug HoyLumbago due to displacement of intervertebral disc M51.26[facility] [facility] [place] [address]/18/2025 [facility] [place] [address]/24/2025[facility] [place] [address]/[facility] [place] [address]/02/2024[facility]Chest pain R07.9[facility] [place] [address]/ Kp HoyChest pain R07.9[facility] [place] [address]/11/2024Doug HoyFatigue R53.83[facility] [place] [facility] [address]/Doug HoyCervical radiculopathy M54.12 Assessments Encounter Date Diagnosis (ICD Code) Assessment Notes Treatment Notes Treatment Clinical Notes Section Notes 04/20/2024 Chest pain (ICD-10 - R07.9) neesd stres cardiolyte - has suregyer coming up for cervical disk disease 04/28/2024Head ache (ICD9-CM - 784.0)08/31/2024Lumbago due to displacement of intervertebral disc (ICD-10 - M51.26)01/15/2025Low back pain at multiple sites (ICD-10 - M54.50)5Cervical radiculopathy (ICD-10 - M54.12)05/23/2024 Chest pain (ICD-10 - R07.9)5Chest pain (ICD-10 - R07.9)08/31/2024 Fatigue (ICD-10 - R53.83)09/19/2024Pancreatitis, acute (ICD-10 - K85.90) 09/20/2024Lumbago due to displacement of intervertebral disc (ICD-10 - M51.26) 11/09/2024Lumbago due to displacement of intervertebral disc (ICD-10 - M51.26) 04/20/2024OtherDiscussed increasing physical exercise and continuing/implementing a healthier diet.04/28/2024OtherTake NSAIDs as needed for pain. Discussed avoiding headache triggers and improiving diet and sleep h abits to prevent headaches.08/31/2024OtherRecommended to rest and use a heating pad on the area. Take NSAIDs for pain as needed Plan Of Treatment Pending Test Test Name Order Date MRI : Thoracic spine 02/01/2023 CMP (COMPLETE METABOLIC PANEL) 3 HEMOGLOBIN A1C (GLYCO) 10/28/2022 INSULIN, TOTAL 10/28/2022 LIPID PANEL (CHOL/TRIG/HDL/LDL) 10/29/19 23 CBC WITH DIFF (EXP 12/2024) 10/28/2022 INFLUENZA A and B, NASAL/NASOPHARYNGEAL (PCR) 01/28/2023 CMP - Comprehensive Metabolic Panel 08/22 CMP - Comprehensive Metabolic Panel 08/23 US Liver 09/19/2024 US Pancreas 09/19/2024 US Gallbladder 09/19/2024 CBC W/AUTO DIFF 08/31/2024 Treadmill Stress Test with Nuclear Imagi ng 04/20/2024 SARS COVID-2 NASAL - PCR 01/28/2023 AMMONIA 08/31/2024 AMYLASE 08/31/2024 CRP 08/31/2024 LIPASE 08/31/2024 SED RATE WESTERGREN 08/31/2024 MRI CSPINE WO CON 09/30/2023 MRI CSPINE WO CON 08/17/2022 MRI LSPINE WO CON 01/15/2025 XR LSPINE MIN 4 VIEWS 01/15/2025 THYROID PANEL (T4/TSH/FREE T3) 3 Insurance Providers Payer Name Payer Address Payer Phone Subscriber Number Group Number Insured Name Patient Relationship to Insured Coverage Start Date Coverage End Date [facility] [address] [address] [place] [address] [id number] Walker Tena Self - patient is the insured Medications Administered Medication Instructions Date of Administration Dosage Notes Ketorolac Tromethamine mgOrphenadrine Mpooboa73 mgTriamcinolone 40 mg/ml 20 mg Medical (General) History Medical History History [...]
--- OUTSIDE RECORDS SUMMARY | 2025-02-06 15:05 | XMS_ITS | Clinical Summary ---
[id number] [place] [address] Care Team Providers Care Plate Grainer Name Role Phone Arden Barahona MD Primary Care Provider [phone] Allergies No known active allergies Medications No known medications Social History Tobacco UseTypesPacks/DayYears UsedDateSmoking Tobacco: Never AssessedChildcare AnswerDate PuqvbfjzWabqfwxtqOocbutl58/05/2020EmploymentAnswerDate Recorded PpvfjajnxoPtmguma93/05/2020Purpose - LifeAnswerDate RecordedPurpose and direction in gouuGjppmuc14/11/2021Sex and Gender InformationValueDate Recorded Sex Assigned at BirthNot on fileLegal QfeYduz3109/27/2014 11:49 AM EDTGender IdentityNot on fileSexual OrientationNot on file Last Filed Vital Signs Vital SignReadingTime TakenCommentsBlood Zcikabpj634/8410 10:41 PM EDT Ukvkc65153/05/2020 10:41 PM VMJQjsnznfpjud22.8 ??C (98.3 ??F)11/27/2019 10:41 PM EDTRespiratory Lhwx1118 10:41 PM EDTOxygen Nialbrnucr91%11/27/2019 10:41 PM EDTInhaled Oxygen Concentration--Cafcze19.8 kg (220 lb)11/27/2019 10:41 PM ENFVodgjj659.5 cm (6' 3 )11/27/2019 10:41 PM EDTBody Mass Index27. 10:41 PM EDT Plan of Treatment Health MaintenanceDue DateLast DoneCommentsDTaP,Tdap and Td Vaccines (6 - Tdap) , 06/24/1995, 1994, Additional history exists Depression Lgksvskjr00/13/2007Tobacco Xjfflhgwt34/13/2007dult BMI Screening 2012COVID-19 Vaccine ( season)509/, 10/23/2020 Influenza Cyisqln7110/23/2024 Medical Devices Not on file Insurance Care Teams Team MemberRelationshipSpecialtyStart DateEnd Date Arden Barahona MD PCP - GeneralFamily Medicine03/18/21
--- OUTSIDE RECORDS SUMMARY | 2025-02-06 15:06 | XMS_ITS | Patient Health Record ---
Author Organization [facility] Address [address] [place] [address] Care Team Providers Care Valve Inserter Name Role Phone [place] Arden Primary Care Provider Unavailonelia carlos Romero Aaliyahjayshree Unavailable [phone] Vandana Sandra Unavailable [phone] Allergies No Known Allergies Reason For Referral Reason REFERRAL TO [facility] Diagnosis 1 Cervical spinal sten osis (M48.02) Referral Organization [facility] Referring Provider First Name Rupali Referring Provider Last Name [facility] Referring Provider Speciality Orthopedic Surgery Referred Organization Pain clinic General Notes Katie Burciaga 2024 09:46:32 AM >Gualberto Dawn 05/22/2024 09:09:08 AM >Gualberto PARKER Dawn 05/24/2024 01:01:44 PM >faxed Referral Priority Routine Medications Medication SIG (Take, Route, Frequency, Duration) Notes Start Date End Date Status Xarelto ActivemethocarbamolActiveLaMICtalActivegabapentin 300 mg1 cap(s) orally 3 times a day; Duration: 30 days5Active Social History Tobacco Use: Social History Observation Description Date Details (start date - stop date) Former Smoker NA - NA AUDIT-C (Standard) Question Answer Notes Did you have a drink containing alcohol in the p ast year? No Ecjekq9AvtswdpokvvxlcPaiiobouEmlvpyx Control (Standard) Question Answer Notes Tobacco use: Former smoker How long has it been since you last smoked?1-5 years Problems Problem Type SNOMED Code ICD Code Onset Dates Problem Status W/U Status Risk Notes Problem Degeneration of cerv ical intervertebral disc (68255885) Other cervical disc degeneration, high cervical region (M50.31) ActiveconfirmedProblemDegeneration of cervical intervertebral disc (83169574) Other cervical disc degeneration at C4-C5 level (M50.321)ActiveconfirmedProblem High risk drug monitoring status (797150815)senior care (current) use of opiate analgesic (Z79.891)ActiveconfirmedProblemCervical spinal stenosis (66211435) Cervical spinal stenosis (M48.02)ActiveconfirmedProblemCervical radiculopathy (46957304)Cervical radiculopathy (M54.12)Activeconfirmed Encounters Encounter Location Date Provider Diagnosis [address] [address] 05/12/2024 [facility] Cervical spinal stenosis M48.02 ; Cervical radiculopathy M54.12 ; Other cervical disc degeneration, high cervical region M50.31 ; Other cervical disc degeneration at C4-C5 level M50.321 and superintendent terminal (current) use of opiate analgesic Z79.891 Assessments Encounter Date Diagnosis (ICD Code) Assessment Notes Treatment Notes Treatment Clinical Notes Section Notes 05/12/2024 Cervical radiculopathy (ICD-10 - M54.12) 1. C3-5 stenosis/radiculopathy/DDD5Cervical spinal stenosis (ICD-10 - M48.02)1. C3-5 stenosis/radiculopathy/DDD03Other cervical disc degeneration, high cervical region (ICD-10 - M50.31)1. C3-5 stenosis/radiculopathy/DDD03Other cervical disc degeneration at C4-C5 level (ICD-10 - M50.321)1. C3-5 stenosis/radiculopathy/DDD05/12/2024Long term (current) use of opiate analgesic (ICD-10 - Z79.891)1. C3-5 stenosis/radiculopathy/DDD05/12/2024Other Plan established by Dr. Bella. At this time, Dr. Bella discussed MRI results with the patient and is recommending nonoperative management. We did give patient a prescription for physical therapy and will refer to pain management to evaluate and treat. We did give patient a prescription for g abapentin and tramadol to help his pain and symptoms until his pain management appointment. We willsee patient back on an as-needed basis. The [...] contact Dr. Bella. Best regards, 1. C3-5 stenosis/radiculopathy/DDD Plan Of Treatment Pending Test Test Name Order Date Cervical spine 2 v FLEX, EXT - [id number] 01/2024 [facility] - Cervical Spine PT Orde r, Isometrics & Strenghening w/Modalities as needed. 2-3 x Week for 4-6 Weeks 05/12/2024 MRI : Cervical Spine W/O Contrast - 7214 1 11/04/2023 Insurance Providers Payer Name Payer Address Payer Phone Subscriber Number Group Number Insured Name Patient Relationship to Insured Coverage Start Date Coverage End Date [facility] [address] [address] [place] [address] [id number] WALKER CASTILLO Self - patient is the insured Medical (General) History Medical History History ICD Code Anxiety DepressionSeen a Psychiatrist
--- NOTE | 2025-02-06 15:07 | MR_ITS ---
The [address] [address] Patient Name: WALKER CASTILLO MRN: [facility]:[id number] date: 1995 Sex: M Assigned Patient Location: MRI Current Patient Location: MRI Accession/Order Number: [id number] Exam Date: 02/06/2025 15:45 Report Date: 02/06/2025 21:56 At the request of: PAULA SHI MD Procedure: MR lumbar spine wo con MR lumbar spine wo con 02/06/2025 4:22 PM SIGNS AND SYMPTOMS: Chronic low back pain PROTOCOL: Multiplanar multisequence MR images of the lumbar spine COMPARISON: None. FINDINGS: The bones of the lumbar spine are in anatomic alignment. There is preservation of vertebral body heights. There is disc desiccation and minimal disc height loss at L5-S1. There is a rudimentary L5-S1 intervertebral disc with a partially transitional S1 segment. There is mild Modic type II fatty endplate degenerative change at L5-S1. The conus terminates at the inferior endplate of the L1 vertebral body level. No epidural or paraspinous fluid collection is appreciated. At T12-L1: There is a normal disc, central canal, and neural foramen. At L1-L2: There is a normal disc, central canal, and neural foramen. At L2-L3: There is a normal disc, central canal, and neural foramen. At L3-L4: There is a normal disc, central canal, and neural foramen. At L4-L5: There is a normal disc, central canal, and neural foramen. At L5-S1: There is a focal central disc protrusion contributing to mild spinal canal narrowing. There is accompanying facet hypertrophy contributing to mild left neural foraminal narrowing. At S1 and S2: There is is partial fusion of the S1 and S2 sacral ala on the right without significant stenosis. MR/MR lumbar spine wo con IMPRESSION: At L5-S1: There is a focal central disc protrusion contributing to mild spinal canal narrowing. There is accompanying facet hypertrophy contributing to mild left neural foraminal narrowing. Impression dictated by: Serafin Aguero M.D. 02/06/2025 9:56 PM Dictation Location: [place] [address] Electronically authenticated by: [id number] Y Date: 02/06/2025 21:56
--- NOTE | 2025-02-06 15:07 | XR_ITS ---
The [address] [address] Patient Name: WALKER CASTILLO MRN: [id number] date: 1995 Sex: M Assigned Patient Location: MRI Current Patient Location: MRI Accession/Order Number: [id number] Exam Date: 02/06/2025 15:15 Report Date: 02/06/2025 21:52 At the request of: PAULA SHI MD Procedure: XR lumbar spine min 4V XR lumbar spine min 4V 02/06/2025 3:20 PM SIGNS AND SYMPTOMS: ^Low Back Pain PROTOCOLS: Frontal, lateral, and oblique radiographs of the lumbar spine COMPARISON: 03/04/2021 FINDINGS: The alignment, development and bony structures are normal. There is no fracture or destructive lesion. There is mild disc height loss at L5-S1. There is a transitional S1 vertebral body segment with a rudimentary S1-S2 intervertebral discs similar to the prior exam. Mild degenerative changes are noted in the sacroiliac joints. XR/XR lumbar spine min 4V IMPRESSION: No fracture or subluxation. Mild disc height loss is noted at L5-S1 Impression dictated by: Serafin Aguero M.D. 02/06/2025 9:52 PM Dictation Location: [place] [address] Electronically authenticated by: [id number] Y Date: 02/06/2025 21:52
== END 2025-02-06 15:00 | disposition home or self-care (01) ==
PROVIDERS: PCP Family Medicine; Visit Provider Family Medicine
DX: M54.50 Low back pain, unspecified (principal)
CPT/HCPCS: 72110; 72148